=== PATIENT | male | born 1960 ===

== ENCOUNTER 2017-09-23 10:31 | Inpatient (IN) | payer SELFPAY ==
[~2017-09-23] VITALS: Ht 180.3 cm; Wt 73.5 kg
[2017-09-23] MEDS ORDERED: RISP-34 PO (14:30)
[2017-09-23] MEDS ORDERED: MAG HYD/AL HYD/SIMETH 30ML UDC PO PRN (15:00)
[2017-09-23] MEDS ORDERED: ACETAMINOPHEN 325 MG TAB PO PRN (15:00)
[2017-09-23] MEDS ORDERED: risperiDONE 1 MG TAB PO SCH (21:00)
[2017-09-23] MEDS: risperiDONE 1 MG TAB PO SCH (21:42)
[2017-09-24 04:30] VITALS: BP 90/70
[2017-09-24] MEDS: MULTIVITAMINS PO SCH (08:22)
[2017-09-24] MEDS: risperiDONE 1 MG TAB PO SCH ×2 (08:22→22:09)
--- NOTE | 2017-09-24 10:28 | EKG ---
FACILITY: [facility] PATIENT NAME: RAVEN BASS : [id number] MR: [id number] V: [id number] EXAM DATE: ORDERING PHYSICIAN: DIMITRI BAUTISTA TECHNOLOGIST: CHUCK Hou Reason : HX OF CHEST PAIN Blood Pressure : / mmHG Vent. Rate : 081 BPM Atrial Rate : 081 BPM P-R Int : 172 ms QRS Dur : 086 ms QT Int : 346 ms P-R-T Axes : 064 061 064 degrees QTc Int : 401 ms Normal sinus rhythm with sinus arrhythmia Normal ECG No previous ECGs available Confirmed by ALYSHA JOHNSON ([id number]) on 09/24/2017 1:03:14 PM Referred By: DIMITRI BAUTISTA Confirmed By:ALYSHA JOHNSON
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
[2017-09-25 06:01] VITALS: BP 108/80
[2017-09-25] MEDS: risperiDONE 1 MG TAB PO SCH ×2 (08:03→21:06)
[2017-09-25] MEDS: MULTIVITAMINS PO SCH (08:03)
--- NOTE | 2017-09-25 13:20 | BHS Progress Note ---
[facility] - Subjective Progress Notes Subjective Patient pleasant and cooperative this AM with treatment team and this provider. Continues to voice concerns about being followed and persecuted by "Mexicans and Blacks." Patient will continue current medications, no changes, will proceed with following [facility] commitment from [facility] in this patient with multiple psychiatric admissions and history of severe persisting mental illness. Appetite and sleep good. Suicidal Ideation: None Homicidal Ideation: None [facility] - Objective Physical Exam Vital Signs Vital Signs Date Time Temp Pulse Resp B/P (MAP) Pulse Ox O2 Delivery O2 Flow Rate FiO2 09/25/17 06:01 98.2 70 15 108/80 (89) 92 Room Air Muscle Strength and Tone: WNL Gait and Station: Steady [facility] Medications Reviewed: Side Effects, Benefits of Medication, Risks Allergies Reviewed: Yes Mental Status Exam General Appearance: Casual, Well Groomed, Good Eye Contact, Cooperative, Polite , Good Interaction, No Unkept, No Tearful, No Psychomotor Agitation, No Psychomotor Retardation, No Bizarre Mannerisms, No Tics Speech: Clear, Spontaneous, Normal Rate, Normal Rhythm, Normal Volume, Normal Tone Mood: Euthymic Affect: Full and Appropriate, No Tearful, No Anxious, No Agitated Thought Process: No Logical, No Goal Directed, Loose Associations Thought Content: No Suicidal Ideation, No Homicidal Ideation, Delusions ( persecution), Auditory Halllucinations (probable), No Visual Hallucinations, No Thought Broadcasting, No Ideas of Reference, No Obsessions, No Compulsions Sensorium: Clear Cognition: Alert & Oriented-Person, Alert & Oriented-Place, Alert & Oriented- Time, Dztbu-Syfjwiyo-Eytsvsvnl Memory: Immediate, Recent, Remote Intelligence: Average Insight Judgment: Poor (limited by illness) [facility] Assessment and Plan Auic-zz-Xate Encounter Date: Sep 25, 2017 Hgdu-on-Wgqk Encounter Time: 11:30 [facility] Plan: Necessary Precautions, Individual/Group Therapy, Admin/Titrate Meds, Educate Patient Multpiple Antipsychotics Used: No Problems: (1) Schizophrenia Status: Chronic (2) Polysubstance dependence Status: Resolved Assessment & Plan: in remission Condition 1. continue treatment. 2. move forward with placement at [facility]. Problem Qualifiers (1) Schizophrenia: Schizophrenia type: paranoid schizophrenia Qualified Codes: F20.0 - Paranoid schizophrenia FIORDALIZA ALVARENGA MD Sep 25, 2017 13:20
[2017-09-26 02:53] VITALS: BP 120/74
[2017-09-26] MEDS: risperiDONE 1 MG TAB PO SCH ×2 (08:38→20:50)
[2017-09-26] MEDS: MULTIVITAMINS PO SCH (08:38)
--- NOTE | 2017-09-26 13:25 | BHS Progress Note ---
[facility] - Subjective Progress Notes Subjective Patient continues to be cooperative and pleasant on the unit, a little sedated on the unit today, and will change risperdal to 3mg QHS and 1mg QAM. Patient reports underlying positive symptoms are in decline and medication is helpful. Sleep and appetite good, no other concerns today. Will continue to await placement at [facility]. Suicidal Ideation: None Homicidal Ideation: None [facility] - Objective Physical Exam Vital Signs Vital Signs Date Time Temp Pulse Resp B/P (MAP) Pulse Ox O2 Delivery O2 Flow Rate FiO2 09/26/17 02:53 98.6 72 16 120/74 (89) 89 Room Air Muscle Strength and Tone: WNL Gait and Station: Steady [facility] Medications Reviewed: Side Effects, Benefits of Medication, Risks Allergies Reviewed: Yes Mental Status Exam General Appearance: Casual, Well Groomed, Good Eye Contact, Cooperative, Polite , Good Interaction, No Unkept, No Tearful, No Psychomotor Agitation, No Psychomotor Retardation, No Bizarre Mannerisms, No Tics Speech: Clear, Spontaneous, Normal Rate, Normal Rhythm, Normal Volume, Normal Tone Mood: Euthymic Affect: Full and Appropriate, No Tearful, No Anxious, No Agitated Thought Process: No Logical, No Goal Directed, Loose Associations Thought Content: No Suicidal Ideation, No Homicidal Ideation, Delusions ( persecution), Auditory Halllucinations (probable), No Visual Hallucinations, No Thought Broadcasting, No Ideas of Reference, No Obsessions, No Compulsions Sensorium: Clear Cognition: Alert & Oriented-Person, Alert & Oriented-Place, Alert & Oriented- Time, Zagfm-Nwwpakjh-Ehqcwtgmb Memory: Immediate, Recent, Remote Intelligence: Average Insight Judgment: Poor (limited by illness) [facility] Assessment and Plan Lmpx-yy-Qubw Encounter Date: Sep 26, 2017 Jwyd-xs-Vpio Encounter Time: 11:45 [facility] Plan: Necessary Precautions, Individual/Group Therapy, Admin/Titrate Meds, Educate Patient Multpiple Antipsychotics Used: No Problems: (1) Schizophrenia Status: Chronic (2) Polysubstance dependence Status: Resolved Assessment & Plan: in remission Condition 1. continue treatment. 2. risperdal 1mg QAM, and 3mg QHS 3. await transfer to [facility]. Problem Qualifiers (1) Schizophrenia: Schizophrenia type: paranoid schizophrenia Qualified Codes: F20.0 - Paranoid schizophrenia FIORDALIZA ALVARENGA MD Sep 26, 2017 13:25
[2017-09-27 06:57] LABS: PLATELET COUNT, AUTOMATED 153 K/uL (150-450)
[2017-09-27 07:05] LABS: LDL CHOLESTEROL 135 mg/dl
[2017-09-27] MEDS: risperiDONE 1 MG TAB PO SCH ×2 (07:59→21:15)
[2017-09-27] MEDS: MULTIVITAMINS PO SCH (07:59)
[2017-09-27 09:05] VITALS: BP 116/70
--- NOTE | 2017-09-27 12:55 | BHS Progress Note ---
[facility] - Subjective Progress Notes Subjective Patient remains on unit, very cooperative, doing well, denies any concerns today , no obvious evidence of underlying paranoia exists. Will continue current medication, regimen, and await [facility] placement. Suicidal Ideation: None Homicidal Ideation: None [facility] - Objective Physical Exam Vital Signs Vital Signs Date Time Temp Pulse Resp B/P (MAP) Pulse Ox O2 Delivery O2 Flow Rate FiO2 09/26/17 02:53 98.6 72 16 120/74 (89) 89 Room Air Muscle Strength and Tone: WNL Gait and Station: Steady [facility] Medications Reviewed: Side Effects, Benefits of Medication, Risks Allergies Reviewed: Yes Mental Status Exam General Appearance: Casual, Well Groomed, Good Eye Contact, Cooperative, Polite , Good Interaction, No Unkept, No Tearful, No Psychomotor Agitation, No Psychomotor Retardation, No Bizarre Mannerisms, No Tics Speech: Clear, Spontaneous, Normal Rate, Normal Rhythm, Normal Volume, Normal Tone Mood: Euthymic Affect: Full and Appropriate, No Tearful, No Anxious, No Agitated Thought Process: No Logical, No Goal Directed, Loose Associations Thought Content: No Suicidal Ideation, No Homicidal Ideation, Delusions ( persecution), Auditory Halllucinations (probable), No Visual Hallucinations, No Thought Broadcasting, No Ideas of Reference, No Obsessions, No Compulsions Sensorium: Clear Cognition: Alert & Oriented-Person, Alert & Oriented-Place, Alert & Oriented- Time, Zxjme-Nhcmltle-Jejukuuxy Memory: Immediate, Recent, Remote Intelligence: Average Insight Judgment: Poor (limited by illness) Result Diagram: 09/27/17 0639 09/27/17 0639 [facility] Assessment and Plan Jlxg-ic-Stlf Encounter Date: Sep 27, 2017 Ozgz-cf-Qvfa Encounter Time: 12:50 [facility] Plan: Necessary Precautions, Individual/Group Therapy, Admin/Titrate Meds, Educate Patient Tobacco Medications: Started Multpiple Antipsychotics Used: No Problems: (1) Schizophrenia Status: Chronic (2) Polysubstance dependence Status: Resolved Assessment & Plan: in remission Condition 1. continue medications and treatment. [facility] Problem Qualifiers (1) Schizophrenia: Schizophrenia type: paranoid schizophrenia Qualified Codes: F20.0 - Paranoid schizophrenia FIORDALIZA ALVARENGA MD Sep 27, 2017 12:55
[2017-09-28] MEDS: risperiDONE 1 MG TAB PO SCH ×2 (08:26→21:00)
[2017-09-28] MEDS: MULTIVITAMINS PO SCH (08:26)
--- NOTE | 2017-09-28 10:29 | BHS Progress Note ---
[facility] - Subjective Progress Notes Subjective "It's not a matter of if they are going to kill me, it's a matter of when. I don 't see no Mexicans here." Ongoing paranoia, delusional conversation Mood variation Depression minimal, denies suicidal or homicidal ideation Appetite good, energy level fair Suicidal Ideation: None Homicidal Ideation: None [facility] - Objective Physical Exam Muscle Strength and Tone: WNL Gait and Station: Steady [facility] Medications Reviewed: Side Effects, Benefits of Medication, Risks Allergies Reviewed: Yes Mental Status Exam General Appearance: Casual, Well Groomed, Good Eye Contact, Cooperative, Polite , Good Interaction, No Unkept, No Tearful, No Psychomotor Agitation, No Psychomotor Retardation, No Bizarre Mannerisms, No Tics Speech: Clear, Spontaneous, Normal Rate, Normal Rhythm, Normal Volume, Normal Tone Mood: Euthymic Affect: Full and Appropriate, No Tearful, No Anxious, No Agitated Thought Process: No Logical, No Goal Directed, Loose Associations Thought Content: No Suicidal Ideation, No Homicidal Ideation, Delusions ( persecution), Auditory Halllucinations (probable), No Visual Hallucinations, No Thought Broadcasting, No Ideas of Reference, No Obsessions, No Compulsions Sensorium: Clear Cognition: Alert & Oriented-Person, Alert & Oriented-Place, Alert & Oriented- Time, Wkljs-Usxzumju-Uphwrdlna Memory: Immediate, Recent, Remote Intelligence: Average Insight Judgment: Poor (limited by illness) Result Diagram: 09/27/17 0639 09/27/17 0639 Lab Vital Signs Date Time Temp Pulse Resp B/P (MAP) Pulse Ox O2 Delivery O2 Flow Rate FiO2 09/27/17 09:05 99.4 74 15 116/70 (85) 92 Room Air Allergies Coded Allergies No Known Drug Allergies (Unverified09/23/17) [facility] Assessment and Plan Xlzn-zl-Uaqj Encounter Date: Sep 28, 2017 Nblg-kv-Gqte Encounter Time: 10:28 [facility] Plan: Necessary Precautions, Individual/Group Therapy, Admin/Titrate Meds, Educate Patient Tobacco Medications: Started Multpiple Antipsychotics Used: No Problems: (1) Schizophrenia Status: Chronic (2) Polysubstance dependence Status: Resolved Condition Continue current medications and treatment Maintain precautions H transfer pending bed availability Problem Qualifiers (1) Schizophrenia: Schizophrenia type: paranoid schizophrenia Qualified Codes: F20.0 - Paranoid schizophrenia ALBERT GRADY NP Sep 28, 2017 10:29
[2017-09-28 10:40] VITALS: BP 106/60
[2017-09-29 08:00] VITALS: BP 104/70
[2017-09-29] MEDS: MULTIVITAMINS PO SCH (08:21)
[2017-09-29] MEDS: risperiDONE 1 MG TAB PO SCH ×2 (08:21→21:05)
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
[2017-09-30 03:24] VITALS: BP 118/77
[2017-09-30] MEDS: risperiDONE 1 MG TAB PO SCH ×2 (08:21→21:26)
[2017-09-30] MEDS: MULTIVITAMINS PO SCH (08:21)
--- NOTE | 2017-09-30 13:46 | BHS Progress Note ---
[facility] - Subjective Progress Notes Subjective Patient remains pleasant and cooperative on the unit, patient is aware and accepting that he will go to [place] to the [facility]. Denies any problems today. Will continue same medications. Suicidal Ideation: None Homicidal Ideation: None [facility] - Objective Physical Exam Vital Signs Vital Signs Date Time Temp Pulse Resp B/P (MAP) Pulse Ox O2 Delivery O2 Flow Rate FiO2 09/30/17 03:24 98.3 81 16 118/77 (91) 90 Room Air Muscle Strength and Tone: WNL Gait and Station: Steady [facility] Medications Reviewed: Side Effects, Benefits of Medication, Risks Allergies Reviewed: Yes Mental Status Exam General Appearance: Casual, Well Groomed, Good Eye Contact, Cooperative, Polite , Good Interaction, No Unkept, No Tearful, No Psychomotor Agitation, No Psychomotor Retardation, No Bizarre Mannerisms, No Tics Speech: Clear, Spontaneous, Normal Rate, Normal Rhythm, Normal Volume, Normal Tone Mood: Euthymic Affect: Full and Appropriate, Calm, No Tearful, No Anxious, No Agitated Thought Process: No Logical, No Goal Directed, Loose Associations, Flight of Ideas Thought Content: No Suicidal Ideation, No Homicidal Ideation, Delusions ( persecution), Auditory Halllucinations (probable), No Visual Hallucinations, No Thought Broadcasting, No Ideas of Reference, No Obsessions, No Compulsions, Other (paranoia) Sensorium: Clear Cognition: Alert & Oriented-Person, Alert & Oriented-Place, Alert & Oriented- Time, Mirla-Itlbqnhw-Ytapcnksq Memory: Immediate, Recent, Remote Intelligence: Average Insight Judgment: Poor (limited by illness) Result Diagram: 09/27/17 0639 09/27/17 0639 [facility] Assessment and Plan Talx-js-Lxpu Encounter Date: Sep 30, 2017 Thrm-vu-Whun Encounter Time: 11:30 [facility] Plan: Necessary Precautions, Individual/Group Therapy, Admin/Titrate Meds, Educate Patient Tobacco Medications: Started Multpiple Antipsychotics Used: No Problems: (1) Schizophrenia Status: Chronic (2) Polysubstance dependence Status: Resolved Problem Qualifiers (1) Schizophrenia: Schizophrenia type: paranoid schizophrenia Qualified Codes: F20.0 - Paranoid schizophrenia FIORDALIZA ALVARENGA MD Sep 30, 2017 13:46
[2017-10-01 03:59] VITALS: BP 107/70
[2017-10-01] MEDS: risperiDONE 1 MG TAB PO SCH ×2 (08:11→20:49)
[2017-10-01] MEDS: MULTIVITAMINS PO SCH (08:11)
--- NOTE | 2017-10-01 10:27 | BHS Progress Note ---
[facility] - Subjective Progress Notes Subjective Patient continues to interact well on the unit. No concerns today, patient eating well, sleeping well, no evidence of social withdrawal or paranoia on the unit. Patient interacting with other patients well. Will continue current regimen and await state hospital placement. Suicidal Ideation: None Homicidal Ideation: None [facility] - Objective Physical Exam Muscle Strength and Tone: WNL Gait and Station: Steady [facility] Medications Reviewed: Side Effects, Benefits of Medication, Risks Allergies Reviewed: Yes Mental Status Exam General Appearance: Casual, Well Groomed, Good Eye Contact, Cooperative, Polite , Good Interaction, No Unkept, No Tearful, No Psychomotor Agitation, No Psychomotor Retardation, No Bizarre Mannerisms, No Tics Speech: Clear, Spontaneous, Normal Rate, Normal Rhythm, Normal Volume, Normal Tone Mood: Euthymic Affect: Full and Appropriate, Calm, No Tearful, No Anxious, No Agitated Thought Process: No Logical, No Goal Directed, Loose Associations, Flight of Ideas Thought Content: No Suicidal Ideation, No Homicidal Ideation, Delusions ( persecution), Auditory Halllucinations (probable), No Visual Hallucinations, No Thought Broadcasting, No Ideas of Reference, No Obsessions, No Compulsions, Other (paranoia) Sensorium: Clear Cognition: Alert & Oriented-Person, Alert & Oriented-Place, Alert & Oriented- Time, Olyyq-Klldfllj-Qxqkqueao Memory: Immediate, Recent, Remote Intelligence: Average Insight Judgment: Poor (limited by illness) Result Diagram: 09/27/17 0639 09/27/17 0639 [facility] Assessment and Plan Kfgr-ng-Xmmg Encounter Date: Oct 01, 2017 Eyzs-cd-Mkue Encounter Time: 09:00 [facility] Plan: Necessary Precautions, Individual/Group Therapy, Admin/Titrate Meds, Educate Patient Tobacco Medications: Started Multpiple Antipsychotics Used: No Problems: (1) Schizophrenia Status: Chronic (2) Polysubstance dependence Status: Resolved Condition 1. continue treatment. 2. no medication changes. Problem Qualifiers (1) Schizophrenia: Schizophrenia type: paranoid schizophrenia Qualified Codes: F20.0 - Paranoid schizophrenia FIORDALIZA ALVARENGA MD Oct 01, 2017 10:27
[2017-10-01 21:43] VITALS: BP 107/69
[2017-10-02 02:17] VITALS: BP 109/76
[2017-10-02] MEDS: risperiDONE 1 MG TAB PO SCH ×2 (08:27→21:16)
[2017-10-02] MEDS: MULTIVITAMINS PO SCH (08:27)
--- NOTE | 2017-10-02 13:38 | BHS Progress Note ---
BHS - Subjective Progress Notes Subjective Patient continues to interact well on the unit, and is taking an active role in his care. Patient continues to have underlying persecutory type delusions, but they seem to not be very prominent anymore, and patient reports a beneficial effect from risperdal. Will continue same medication for now, and await transfer to [facility]. Suicidal Ideation: None Homicidal Ideation: None BHS - Objective Physical Exam Vital Signs Vital Signs Date Time Temp Pulse Resp B/P (MAP) Pulse Ox O2 Delivery O2 Flow Rate FiO2 10/02/17 02:17 98.3 93 109/76 (87) 90 10/01/17 21:43 Room Air 10/01/17 03:59 16 Hematology Test 09/27/17 06:39 Red Blood Count 4.23 M/uL (4.00-5.60) Mean Corpuscular Volume 93.0 fL (80.0-96.0) Mean Corpuscular Hemoglobin 32.8 pg (26.0-33.0) Mean Corpuscular Hemoglobin Concent 35.3 g/dL (32.0-36.0) Red Cell Distribution Width 14.2 % (11.5-14.5) Mean Platelet Volume 8.7 fL (7.2-11.1) Neutrophils (%) (Auto) 46.3 % (39.4-72.5) Lymphocytes (%) (Auto) 41.5 % (17.6-49.6) Monocytes (%) (Auto) 9.8 % (4.1-12.4) Eosinophils (%) (Auto) 1.6 % (0.4-6.7) Basophils (%) (Auto) 0.8 % (0.3-1.4) Nucleated RBC Relative Count (auto) 0.0 /100WBC Neutrophils # (Auto) 3.3 K/uL (2.0-7.4) Lymphocytes # (Auto) 2.9 K/uL (1.3-3.6) Monocytes # (Auto) 0.7 K/uL (0.3-1.0) Eosinophils # (Auto) 0.1 K/uL (0.0-0.5) Basophils # (Auto) 0.1 K/uL (0.0-0.1) Nucleated RBC Absolute Count (auto) 0.00 K/uL Sodium Level 139 mmol/L (137-145) Potassium Level 4.2 mmol/L (3.5-5.0) Chloride Level 104 mmol/L (98-107) Carbon Dioxide Level 23 mmol/L (22-30) Blood Urea Nitrogen 15 mg/dl (9-21) Creatinine 0.90 mg/dl (0.66-1.25) Glomerular Filtration Rate Calc > 60.0 Random Glucose 94 mg/dl (75-110) Calcium Level 8.9 mg/dl (8.4-10.2) Total Bilirubin 0.3 mg/dl (0.2-1.3) Aspartate Amino Transf (AST/SGOT) 19 U/L (0-35) Alanine Aminotransferase (ALT/SGPT) 36 U/L (0-56) Alkaline Phosphatase 77 U/L (0-126) Total Protein 6.5 gm/dl (6.3-8.2) Albumin 3.4 g/dl (3.5-5.0) Triglycerides Level 241 mg/dl (0-250) Cholesterol Level 233 mg/dl (75-200) LDL Cholesterol 135 mg/dl VLDL Cholesterol 48 mg/dl HDL Cholesterol 50 mg/dl Percent HDL Cholesterol 21.0 % Cholesterol Ratio (LDL/HDL) 2.70 Cholesterol/HDL Ratio 4.7 Chemistry Test 09/27/17 06:39 White Blood Count 7.0 k/uL (4.5-11.0) Red Blood Count 4.23 M/uL (4.00-5.60) Hemoglobin 13.9 g/dL (14.0-18.0) Hematocrit 39.3 % (42.0-52.0) Mean Corpuscular Volume 93.0 fL (80.0-96.0) Mean Corpuscular Hemoglobin 32.8 pg (26.0-33.0) Mean Corpuscular Hemoglobin Concent 35.3 g/dL (32.0-36.0) Red Cell Distribution Width 14.2 % (11.5-14.5) Platelet Count 153 K/uL (150-450) Mean Platelet Volume 8.7 fL (7.2-11.1) Neutrophils (%) (Auto) 46.3 % (39.4-72.5) Lymphocytes (%) (Auto) 41.5 % (17.6-49.6) Monocytes (%) (Auto) 9.8 % (4.1-12.4) Eosinophils (%) (Auto) 1.6 % (0.4-6.7) Basophils (%) (Auto) 0.8 % (0.3-1.4) Nucleated RBC Relative Count (auto) 0.0 /100WBC Neutrophils # (Auto) 3.3 K/uL (2.0-7.4) Lymphocytes # (Auto) 2.9 K/uL (1.3-3.6) Monocytes # (Auto) 0.7 K/uL (0.3-1.0) Eosinophils # (Auto) 0.1 K/uL (0.0-0.5) Basophils # (Auto) 0.1 K/uL (0.0-0.1) Nucleated RBC Absolute Count (auto) 0.00 K/uL Glomerular Filtration Rate Calc > 60.0 Calcium Level 8.9 mg/dl (8.4-10.2) Total Bilirubin 0.3 mg/dl (0.2-1.3) Aspartate Amino Transf (AST/SGOT) 19 U/L (0-35) Alanine Aminotransferase (ALT/SGPT) 36 U/L (0-56) Alkaline Phosphatase 77 U/L (0-126) Total Protein 6.5 gm/dl (6.3-8.2) Albumin 3.4 g/dl (3.5-5.0) Triglycerides Level 241 mg/dl (0-250) Cholesterol Level 233 mg/dl (75-200) LDL Cholesterol 135 mg/dl VLDL Cholesterol 48 mg/dl HDL Cholesterol 50 mg/dl Percent HDL Cholesterol 21.0 % Cholesterol Ratio (LDL/HDL) 2.70 Cholesterol/HDL Ratio 4.7 Muscle Strength and Tone: WNL Gait and Station: Steady [facility] Medications Reviewed: Side Effects, Benefits of Medication, Risks Allergies Reviewed: Yes Mental Status Exam General Appearance: Casual, Well Groomed, Good Eye Contact, Cooperative, Polite , Good Interaction, No Unkept, No Tearful, No Psychomotor Agitation, No Psychomotor Retardation, No Bizarre Mannerisms, No Tics Speech: Clear, Spontaneous, Normal Rate, Normal Rhythm, Normal Volume, Normal Tone Mood: Euthymic Affect: Full and Appropriate, Calm, No Tearful, No Anxious, No Agitated Thought Process: No Logical, No Goal Directed, Loose Associations, Flight of Ideas Thought Content: No Suicidal Ideation, No Homicidal Ideation, Delusions ( persecution), Auditory Halllucinations (probable), No Visual Hallucinations, No Thought Broadcasting, No Ideas of Reference, No Obsessions, No Compulsions, Other (paranoia) Sensorium: Clear Cognition: Alert & Oriented-Person, Alert & Oriented-Place, Alert & Oriented- Time, Umlnr-Afkyoiaw-Ohguikuoj Memory: Immediate, Recent, Remote Intelligence: Average Insight Judgment: Poor (limited by illness) [facility] Assessment and Plan Umol-[id number] Encounter Date: Oct 02, 2017 Rwur-om-Ynxp Encounter Time: 13:00 [facility] Plan: Necessary Precautions, Individual/Group Therapy, Admin/Titrate Meds, Educate Patient Tobacco Medications: Started Multpiple Antipsychotics Used: No Problems: (1) Schizophrenia Status: Chronic (2) Polysubstance dependence Status: Resolved Condition 1. continue treatment 2. no medication changes. 3. await [facility]. Problem Qualifiers (1) Schizophrenia: Schizophrenia type: paranoid schizophrenia Qualified Codes: F20.0 - Paranoid schizophrenia FIORDALIZA ALVARENGA MD Oct 02, 2017 13:38
[2017-10-02] MEDS ORDERED: ACETAMINOPHEN 325 MG TAB PO PRN (13:55)
[2017-10-02] MEDS: NAPROXEN 500 MG TAB PO PRN (21:16)
[2017-10-03 04:37] VITALS: BP 108/76
[2017-10-03 08:40] VITALS: BP 112/68
[2017-10-03] MEDS: MULTIVITAMINS PO SCH (08:55)
[2017-10-03] MEDS: NAPROXEN 500 MG TAB PO PRN ×2 (08:56→21:53)
[2017-10-03] MEDS: risperiDONE 1 MG TAB PO SCH ×2 (09:00→21:48)
--- NOTE | 2017-10-03 10:14 | BHS Progress Note ---
BHS - Subjective Progress Notes Subjective Patient remains cooperative on the unit, underlying delusional thinking involving persecution is minimal. Will continue current medications and await state hospital transfer. No other concerns. patient was seeking pain medications yesterday, with no evidence of actual need. Suicidal Ideation: None Homicidal Ideation: None BHS - Objective Physical Exam Vital Signs Hematology Test 09/27/17 06:39 Red Blood Count 4.23 M/uL (4.00-5.60) Mean Corpuscular Volume 93.0 fL (80.0-96.0) Mean Corpuscular Hemoglobin 32.8 pg (26.0-33.0) Mean Corpuscular Hemoglobin Concent 35.3 g/dL (32.0-36.0) Red Cell Distribution Width 14.2 % (11.5-14.5) Mean Platelet Volume 8.7 fL (7.2-11.1) Neutrophils (%) (Auto) 46.3 % (39.4-72.5) Lymphocytes (%) (Auto) 41.5 % (17.6-49.6) Monocytes (%) (Auto) 9.8 % (4.1-12.4) Eosinophils (%) (Auto) 1.6 % (0.4-6.7) Basophils (%) (Auto) 0.8 % (0.3-1.4) Nucleated RBC Relative Count (auto) 0.0 /100WBC Neutrophils # (Auto) 3.3 K/uL (2.0-7.4) Lymphocytes # (Auto) 2.9 K/uL (1.3-3.6) Monocytes # (Auto) 0.7 K/uL (0.3-1.0) Eosinophils # (Auto) 0.1 K/uL (0.0-0.5) Basophils # (Auto) 0.1 K/uL (0.0-0.1) Nucleated RBC Absolute Count (auto) 0.00 K/uL Sodium Level 139 mmol/L (137-145) Potassium Level 4.2 mmol/L (3.5-5.0) Chloride Level 104 mmol/L (98-107) Carbon Dioxide Level 23 mmol/L (22-30) Blood Urea Nitrogen 15 mg/dl (9-21) Creatinine 0.90 mg/dl (0.66-1.25) Glomerular Filtration Rate Calc > 60.0 Random Glucose 94 mg/dl (75-110) Calcium Level 8.9 mg/dl (8.4-10.2) Total Bilirubin 0.3 mg/dl (0.2-1.3) Aspartate Amino Transf (AST/SGOT) 19 U/L (0-35) Alanine Aminotransferase (ALT/SGPT) 36 U/L (0-56) Alkaline Phosphatase 77 U/L (0-126) Total Protein 6.5 gm/dl (6.3-8.2) Albumin 3.4 g/dl (3.5-5.0) Triglycerides Level 241 mg/dl (0-250) Cholesterol Level 233 mg/dl (75-200) LDL Cholesterol 135 mg/dl VLDL Cholesterol 48 mg/dl HDL Cholesterol 50 mg/dl Percent HDL Cholesterol 21.0 % Cholesterol Ratio (LDL/HDL) 2.70 Cholesterol/HDL Ratio 4.7 Chemistry Test 09/27/17 06:39 White Blood Count 7.0 k/uL (4.5-11.0) Red Blood Count 4.23 M/uL (4.00-5.60) Hemoglobin 13.9 g/dL (14.0-18.0) Hematocrit 39.3 % (42.0-52.0) Mean Corpuscular Volume 93.0 fL (80.0-96.0) Mean Corpuscular Hemoglobin 32.8 pg (26.0-33.0) Mean Corpuscular Hemoglobin Concent 35.3 g/dL (32.0-36.0) Red Cell Distribution Width 14.2 % (11.5-14.5) Platelet Count 153 K/uL (150-450) Mean Platelet Volume 8.7 fL (7.2-11.1) Neutrophils (%) (Auto) 46.3 % (39.4-72.5) Lymphocytes (%) (Auto) 41.5 % (17.6-49.6) Monocytes (%) (Auto) 9.8 % (4.1-12.4) Eosinophils (%) (Auto) 1.6 % (0.4-6.7) Basophils (%) (Auto) 0.8 % (0.3-1.4) Nucleated RBC Relative Count (auto) 0.0 /100WBC Neutrophils # (Auto) 3.3 K/uL (2.0-7.4) Lymphocytes # (Auto) 2.9 K/uL (1.3-3.6) Monocytes # (Auto) 0.7 K/uL (0.3-1.0) Eosinophils # (Auto) 0.1 K/uL (0.0-0.5) Basophils # (Auto) 0.1 K/uL (0.0-0.1) Nucleated RBC Absolute Count (auto) 0.00 K/uL Glomerular Filtration Rate Calc > 60.0 Calcium Level 8.9 mg/dl (8.4-10.2) Total Bilirubin 0.3 mg/dl (0.2-1.3) Aspartate Amino Transf (AST/SGOT) 19 U/L (0-35) Alanine Aminotransferase (ALT/SGPT) 36 U/L (0-56) Alkaline Phosphatase 77 U/L (0-126) Total Protein 6.5 gm/dl (6.3-8.2) Albumin 3.4 g/dl (3.5-5.0) Triglycerides Level 241 mg/dl (0-250) Cholesterol Level 233 mg/dl (75-200) LDL Cholesterol 135 mg/dl VLDL Cholesterol 48 mg/dl HDL Cholesterol 50 mg/dl Percent HDL Cholesterol 21.0 % Cholesterol Ratio (LDL/HDL) 2.70 Cholesterol/HDL Ratio 4.7 Muscle Strength and Tone: WNL Gait and Station: Steady [facility] Medications Reviewed: Side Effects, Benefits of Medication, Risks Allergies Reviewed: Yes Mental Status Exam General Appearance: Casual, Well Groomed, Good Eye Contact, Cooperative, Polite , Good Interaction, No Unkept, No Tearful, No Psychomotor Agitation, No Psychomotor Retardation, No Bizarre Mannerisms, No Tics Speech: Clear, Spontaneous, Normal Rate, Normal Rhythm, Normal Volume, Normal Tone Mood: Euthymic Affect: Full and Appropriate, Calm, No Tearful, No Anxious, No Agitated Thought Process: No Logical, No Goal Directed, Loose Associations, Flight of Ideas Thought Content: No Suicidal Ideation, No Homicidal Ideation, Delusions ( persecution), Auditory Halllucinations (probable), No Visual Hallucinations, No Thought Broadcasting, No Ideas of Reference, No Obsessions, No Compulsions, Other (paranoia) Sensorium: Clear Cognition: Alert & Oriented-Person, Alert & Oriented-Place, Alert & Oriented- Time, Ednto-Ugnsrwvo-Rpbxebcjn Memory: Immediate, Recent, Remote Intelligence: Average Insight Judgment: Poor (limited by illness) [facility] Assessment and Plan Znib-xs-Hzpy Encounter Date: Oct 03, 2017 Jstm-kf-Esuc Encounter Time: 09:30 [facility] Plan: Necessary Precautions, Individual/Group Therapy, Admin/Titrate Meds, Educate Patient Tobacco Medications: Started Multpiple Antipsychotics Used: No Problems: (1) Schizophrenia Status: Chronic (2) Polysubstance dependence Status: Resolved Condition 1. continue treatment. 2. await [facility] hospital transfer. Problem Qualifiers (1) Schizophrenia: Schizophrenia type: paranoid schizophrenia Qualified Codes: F20.0 - Paranoid schizophrenia FIORDALIZA ALVARENGA MD Oct 03, 2017 10:14
[2017-10-04] MEDS: MULTIVITAMINS PO SCH (08:11)
[2017-10-04] MEDS: risperiDONE 1 MG TAB PO SCH ×2 (08:11→21:55)
[2017-10-04 11:00] VITALS: BP 102/60
--- NOTE | 2017-10-04 13:00 | BHS Progress Note ---
BHS - Subjective Progress Notes Subjective Patient continues to be cooperative with overall pleasant demeanor on the unit, denies any psychiatric symptoms today, and notably able to demonstrate executive functioning by following up on telephone to receive a refund from an account outside of the hospital. Will continue current medications. Await state hospital transfer. Suicidal Ideation: None Homicidal Ideation: None BHS - Objective Physical Exam Vital Signs Hematology Test 09/27/17 06:39 Red Blood Count 4.23 M/uL (4.00-5.60) Mean Corpuscular Volume 93.0 fL (80.0-96.0) Mean Corpuscular Hemoglobin 32.8 pg (26.0-33.0) Mean Corpuscular Hemoglobin Concent 35.3 g/dL (32.0-36.0) Red Cell Distribution Width 14.2 % (11.5-14.5) Mean Platelet Volume 8.7 fL (7.2-11.1) Neutrophils (%) (Auto) 46.3 % (39.4-72.5) Lymphocytes (%) (Auto) 41.5 % (17.6-49.6) Monocytes (%) (Auto) 9.8 % (4.1-12.4) Eosinophils (%) (Auto) 1.6 % (0.4-6.7) Basophils (%) (Auto) 0.8 % (0.3-1.4) Nucleated RBC Relative Count (auto) 0.0 /100WBC Neutrophils # (Auto) 3.3 K/uL (2.0-7.4) Lymphocytes # (Auto) 2.9 K/uL (1.3-3.6) Monocytes # (Auto) 0.7 K/uL (0.3-1.0) Eosinophils # (Auto) 0.1 K/uL (0.0-0.5) Basophils # (Auto) 0.1 K/uL (0.0-0.1) Nucleated RBC Absolute Count (auto) 0.00 K/uL Sodium Level 139 mmol/L (137-145) Potassium Level 4.2 mmol/L (3.5-5.0) Chloride Level 104 mmol/L (98-107) Carbon Dioxide Level 23 mmol/L (22-30) Blood Urea Nitrogen 15 mg/dl (9-21) Creatinine 0.90 mg/dl (0.66-1.25) Glomerular Filtration Rate Calc > 60.0 Random Glucose 94 mg/dl (75-110) Calcium Level 8.9 mg/dl (8.4-10.2) Total Bilirubin 0.3 mg/dl (0.2-1.3) Aspartate Amino Transf (AST/SGOT) 19 U/L (0-35) Alanine Aminotransferase (ALT/SGPT) 36 U/L (0-56) Alkaline Phosphatase 77 U/L (0-126) Total Protein 6.5 gm/dl (6.3-8.2) Albumin 3.4 g/dl (3.5-5.0) Triglycerides Level 241 mg/dl (0-250) Cholesterol Level 233 mg/dl (75-200) LDL Cholesterol 135 mg/dl VLDL Cholesterol 48 mg/dl HDL Cholesterol 50 mg/dl Percent HDL Cholesterol 21.0 % Cholesterol Ratio (LDL/HDL) 2.70 Cholesterol/HDL Ratio 4.7 Chemistry Test 09/27/17 06:39 White Blood Count 7.0 k/uL (4.5-11.0) Red Blood Count 4.23 M/uL (4.00-5.60) Hemoglobin 13.9 g/dL (14.0-18.0) Hematocrit 39.3 % (42.0-52.0) Mean Corpuscular Volume 93.0 fL (80.0-96.0) Mean Corpuscular Hemoglobin 32.8 pg (26.0-33.0) Mean Corpuscular Hemoglobin Concent 35.3 g/dL (32.0-36.0) Red Cell Distribution Width 14.2 % (11.5-14.5) Platelet Count 153 K/uL (150-450) Mean Platelet Volume 8.7 fL (7.2-11.1) Neutrophils (%) (Auto) 46.3 % (39.4-72.5) Lymphocytes (%) (Auto) 41.5 % (17.6-49.6) Monocytes (%) (Auto) 9.8 % (4.1-12.4) Eosinophils (%) (Auto) 1.6 % (0.4-6.7) Basophils (%) (Auto) 0.8 % (0.3-1.4) Nucleated RBC Relative Count (auto) 0.0 /100WBC Neutrophils # (Auto) 3.3 K/uL (2.0-7.4) Lymphocytes # (Auto) 2.9 K/uL (1.3-3.6) Monocytes # (Auto) 0.7 K/uL (0.3-1.0) Eosinophils # (Auto) 0.1 K/uL (0.0-0.5) Basophils # (Auto) 0.1 K/uL (0.0-0.1) Nucleated RBC Absolute Count (auto) 0.00 K/uL Glomerular Filtration Rate Calc > 60.0 Calcium Level 8.9 mg/dl (8.4-10.2) Total Bilirubin 0.3 mg/dl (0.2-1.3) Aspartate Amino Transf (AST/SGOT) 19 U/L (0-35) Alanine Aminotransferase (ALT/SGPT) 36 U/L (0-56) Alkaline Phosphatase 77 U/L (0-126) Total Protein 6.5 gm/dl (6.3-8.2) Albumin 3.4 g/dl (3.5-5.0) Triglycerides Level 241 mg/dl (0-250) Cholesterol Level 233 mg/dl (75-200) LDL Cholesterol 135 mg/dl VLDL Cholesterol 48 mg/dl HDL Cholesterol 50 mg/dl Percent HDL Cholesterol 21.0 % Cholesterol Ratio (LDL/HDL) 2.70 Cholesterol/HDL Ratio 4.7 Muscle Strength and Tone: WNL Gait and Station: Steady [facility] Medications Reviewed: Side Effects, Benefits of Medication, Risks Allergies Reviewed: Yes Mental Status Exam General Appearance: Casual, Well Groomed, Good Eye Contact, Cooperative, Polite , Good Interaction, No Unkept, No Tearful, No Psychomotor Agitation, No Psychomotor Retardation, No Bizarre Mannerisms, No Tics Speech: Clear, Spontaneous, Normal Rate, Normal Rhythm, Normal Volume, Normal Tone Mood: Euthymic Affect: Full and Appropriate, Calm, No Tearful, No Anxious, No Agitated Thought Process: No Logical, No Goal Directed, Loose Associations, Flight of Ideas Thought Content: No Suicidal Ideation, No Homicidal Ideation, Delusions ( persecution), Auditory Halllucinations (probable), No Visual Hallucinations, No Thought Broadcasting, No Ideas of Reference, No Obsessions, No Compulsions, Other (paranoia) Sensorium: Clear Cognition: Alert & Oriented-Person, Alert & Oriented-Place, Alert & Oriented- Time, Xegpo-Uqcibxif-Nhptkqium Memory: Immediate, Recent, Remote Intelligence: Average Insight Judgment: Poor (limited by illness) [facility] Assessment and Plan Ouvr-qz-[id number] Encounter Date: Oct 04, 2017 Oykd-zc-Zczy Encounter Time: 13:00 [facility] Plan: Necessary Precautions, Individual/Group Therapy, Admin/Titrate Meds, Educate Patient Tobacco Medications: Started Multpiple Antipsychotics Used: No Problems: (1) Schizophrenia Status: Chronic (2) Polysubstance dependence Status: Resolved Condition 1. continue treatment. 2. no medication changes. 3. await [facility] Current Medications Medications (Trade) Dose Ordered Sig/Bert Route PRN Reason Start Time Stop Time Status Last Admin Dose Admin Acetaminophen (Tylenol(*)325 Mg Tab (Or Equiv)) 650 mg Q4H PRN PO HEADACHE 09/23/17 15:00 10/02/17 13:52 DC 09/23/17 21:53 Al Hydrox/Mg Hydrox/Simethicone (Maalox(*) 30 ml Udcup (Or Equiv)) 30 ml Q4H PRN PO DYSPEPSIA 09/23/17 15:00 10/23/17 14:59 Multivitamins (Thera-M Enhanced Tab (Or Equiv)) 1 each QDAY PO 09/24/17 09:00 10/24/17 08:59 10/04/17 08:11 Risperidone (RisperDAL 1 MG TAB (OR EQUIV)) 1 mg BID PO 09/23/17 21:00 09/23/17 21:00 DC Risperidone (RisperDAL 1 MG TAB (OR EQUIV)) 2 mg BID PO 09/23/17 21:00 09/26/17 12:14 DC 09/26/17 08:38 Risperidone (RisperDAL 1 MG TAB (OR EQUIV)) 3 mg QHS PO 09/26/17 21:00 10/26/17 20:59 10/03/17 21:48 Risperidone (RisperDAL 1 MG TAB (OR EQUIV)) 1 mg QAM PO 09/27/17 09:00 10/27/17 08:59 10/04/17 08:11 Acetaminophen (Tylenol(*)325 Mg Tab (Or Equiv)) 650 mg Q8H PRN PO PAIN 10/02/17 13:55 10/23/17 14:59 Naproxen (Naprosyn(*) 500 Mg Tab (Or Equiv)) 250 mg Q8H PRN PO PAIN 10/02/17 13:50 11/01/17 13:49 10/03/17 21:53 Problem Qualifiers (1) Schizophrenia: Schizophrenia type: paranoid schizophrenia Qualified Codes: F20.0 - Paranoid schizophrenia FIORDALIZA ALVARENGA MD Oct 04, 2017 13:00
[2017-10-04] MEDS: NAPROXEN 500 MG TAB PO PRN (19:05)
[2017-10-05] MEDS: risperiDONE 1 MG TAB PO SCH ×2 (08:14→21:20)
[2017-10-05] MEDS: MULTIVITAMINS PO SCH (08:14)
[2017-10-05] MEDS: NAPROXEN 500 MG TAB PO PRN ×2 (08:17→21:21)
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
[2017-10-05 13:55] VITALS: BP 108/62
[2017-10-06] MEDS: risperiDONE 1 MG TAB PO SCH ×2 (08:26→21:23)
[2017-10-06] MEDS: MULTIVITAMINS PO SCH (08:26)
--- NOTE | 2017-10-06 09:08 | BHS Progress Note ---
[facility] - Subjective Progress Notes Subjective "I'm still pretty bummed about the whole thing." Sleep sufficient, denies depression, anxiety, anger Denies paranoia, talks about dislike of ethnic groups Behavior appropriate on unit Awaiting [facility] transfer Suicidal Ideation: None Homicidal Ideation: None [facility] - Objective Physical Exam Vital Signs Vital Signs Date Time Temp Pulse Resp B/P (MAP) Pulse Ox O2 Delivery O2 Flow Rate FiO2 10/05/17 13:55 99.0 85 18 108/62 (77) 92 Room Air Allergies Coded Allergies No Known Drug Allergies (Unverified09/23/17) Muscle Strength and Tone: WNL Gait and Station: Steady [facility] Medications Reviewed: Side Effects, Benefits of Medication, Risks Allergies Reviewed: Yes Mental Status Exam General Appearance: Casual, Well Groomed, Good Eye Contact, Cooperative, Polite , Good Interaction, No Unkept, No Tearful, No Psychomotor Agitation, No Psychomotor Retardation, No Bizarre Mannerisms, No Tics Speech: Clear, Spontaneous, Normal Rate, Normal Rhythm, Normal Volume, Normal Tone Mood: Euthymic Affect: Full and Appropriate, Calm, No Tearful, No Anxious, No Agitated Thought Process: No Logical, No Goal Directed, Loose Associations, Flight of Ideas Thought Content: No Suicidal Ideation, No Homicidal Ideation, Delusions ( persecution), Auditory Halllucinations (probable), No Visual Hallucinations, No Thought Broadcasting, No Ideas of Reference, No Obsessions, No Compulsions, Other (paranoia) Sensorium: Clear Cognition: Alert & Oriented-Person, Alert & Oriented-Place, Alert & Oriented- Time, Doghd-Srhwswqq-Tluaxwpnh Memory: Immediate, Recent, Remote Intelligence: Average Insight Judgment: Poor (limited by illness) Lab Current Medications Medications (Trade) Dose Ordered Sig/Bert Route PRN Reason Start Time Stop Time Status Last Admin Dose Admin Acetaminophen (Tylenol(*)325 Mg Tab (Or Equiv)) 650 mg Q4H PRN PO HEADACHE 09/23/17 15:00 10/02/17 13:52 DC 09/23/17 21:53 Al Hydrox/Mg Hydrox/Simethicone (Maalox(*) 30 ml Udcup (Or Equiv)) 30 ml Q4H PRN PO DYSPEPSIA 09/23/17 15:00 10/23/17 14:59 Multivitamins (Thera-M Enhanced Tab (Or Equiv)) 1 each QDAY PO 09/24/17 09:00 10/24/17 08:59 10/06/17 08:26 Risperidone (RisperDAL 1 MG TAB (OR EQUIV)) 1 mg BID PO 09/23/17 21:00 09/23/17 21:00 DC Risperidone (RisperDAL 1 MG TAB (OR EQUIV)) 2 mg BID PO 09/23/17 21:00 09/26/17 12:14 DC 09/26/17 08:38 Risperidone (RisperDAL 1 MG TAB (OR EQUIV)) 3 mg QHS PO 09/26/17 21:00 10/26/17 20:59 10/05/17 21:20 Risperidone (RisperDAL 1 MG TAB (OR EQUIV)) 1 mg QAM PO 09/27/17 09:00 10/27/17 08:59 10/06/17 08:26 Acetaminophen (Tylenol(*)325 Mg Tab (Or Equiv)) 650 mg Q8H PRN PO PAIN 10/02/17 13:55 10/23/17 14:59 Naproxen (Naprosyn(*) 500 Mg Tab (Or Equiv)) 250 mg Q8H PRN PO PAIN 10/02/17 13:50 11/01/17 13:49 10/05/17 21:21 Vital Signs Date Time Temp Pulse Resp B/P (MAP) Pulse Ox O2 Delivery O2 Flow Rate FiO2 10/05/17 13:55 99.0 85 18 108/62 (77) 92 Room Air Allergies Coded Allergies No Known Drug Allergies (Unverified09/23/17) [facility] Assessment and Plan [id number] Encounter Date: Oct 06, 2017 Kzpt-un-Wdiu Encounter Time: 09:05 [facility] Plan: Necessary Precautions, Individual/Group Therapy, Admin/Titrate Meds, Educate Patient Tobacco Medications: Started Multpiple Antipsychotics Used: No Problems: (1) Schizophrenia Status: Chronic (2) Polysubstance dependence Status: Resolved Condition Continue current medication and treatment Awaiting [facility] transfer Continue precautions Problem Qualifiers (1) Schizophrenia: Schizophrenia type: paranoid schizophrenia Qualified Codes: F20.0 - Paranoid schizophrenia ALBERT GRADY NP Oct 06, 2017 09:08
[2017-10-06 14:25] VITALS: BP 108/68
[2017-10-06] MEDS: NAPROXEN 500 MG TAB PO PRN (21:23)
[2017-10-07 06:17] VITALS: BP 95/74
[2017-10-07] MEDS: risperiDONE 1 MG TAB PO SCH ×2 (07:27→21:33)
[2017-10-07] MEDS: MULTIVITAMINS PO SCH (07:27)
--- NOTE | 2017-10-07 11:58 | BHS Progress Note ---
[facility] - Subjective Progress Notes Subjective Patient continues to do well on the unit, no obvious signs of psychosis, patient is interacting well with staff and other patients, and attempting to help with the care of others. No obvious paranoia on the unit, eating and sleeping well, no other concerns. will continue same medications. Patient is currently number [facility] on [facility] wait list. Suicidal Ideation: None Homicidal Ideation: None S - Objective Physical Exam Vital Signs Vital Signs Date Time Temp Pulse Resp B/P (MAP) Pulse Ox O2 Delivery O2 Flow Rate FiO2 10/07/17 06:17 98.2 102 16 95/74 (81) 93 Room Air Hematology Test 09/27/17 06:39 Red Blood Count 4.23 M/uL (4.00-5.60) Mean Corpuscular Volume 93.0 fL (80.0-96.0) Mean Corpuscular Hemoglobin 32.8 pg (26.0-33.0) Mean Corpuscular Hemoglobin Concent 35.3 g/dL (32.0-36.0) Red Cell Distribution Width 14.2 % (11.5-14.5) Mean Platelet Volume 8.7 fL (7.2-11.1) Neutrophils (%) (Auto) 46.3 % (39.4-72.5) Lymphocytes (%) (Auto) 41.5 % (17.6-49.6) Monocytes (%) (Auto) 9.8 % (4.1-12.4) Eosinophils (%) (Auto) 1.6 % (0.4-6.7) Basophils (%) (Auto) 0.8 % (0.3-1.4) Nucleated RBC Relative Count (auto) 0.0 /100WBC Neutrophils # (Auto) 3.3 K/uL (2.0-7.4) Lymphocytes # (Auto) 2.9 K/uL (1.3-3.6) Monocytes # (Auto) 0.7 K/uL (0.3-1.0) Eosinophils # (Auto) 0.1 K/uL (0.0-0.5) Basophils # (Auto) 0.1 K/uL (0.0-0.1) Nucleated RBC Absolute Count (auto) 0.00 K/uL Sodium Level 139 mmol/L (137-145) Potassium Level 4.2 mmol/L (3.5-5.0) Chloride Level 104 mmol/L (98-107) Carbon Dioxide Level 23 mmol/L (22-30) Blood Urea Nitrogen 15 mg/dl (9-21) Creatinine 0.90 mg/dl (0.66-1.25) Glomerular Filtration Rate Calc > 60.0 Random Glucose 94 mg/dl (75-110) Calcium Level 8.9 mg/dl (8.4-10.2) Total Bilirubin 0.3 mg/dl (0.2-1.3) Aspartate Amino Transf (AST/SGOT) 19 U/L (0-35) Alanine Aminotransferase (ALT/SGPT) 36 U/L (0-56) Alkaline Phosphatase 77 U/L (0-126) Total Protein 6.5 gm/dl (6.3-8.2) Albumin 3.4 g/dl (3.5-5.0) Triglycerides Level 241 mg/dl (0-250) Cholesterol Level 233 mg/dl (75-200) LDL Cholesterol 135 mg/dl VLDL Cholesterol 48 mg/dl HDL Cholesterol 50 mg/dl Percent HDL Cholesterol 21.0 % Cholesterol Ratio (LDL/HDL) 2.70 Cholesterol/HDL Ratio 4.7 Chemistry Test 09/27/17 06:39 White Blood Count 7.0 k/uL (4.5-11.0) Red Blood Count 4.23 M/uL (4.00-5.60) Hemoglobin 13.9 g/dL (14.0-18.0) Hematocrit 39.3 % (42.0-52.0) Mean Corpuscular Volume 93.0 fL (80.0-96.0) Mean Corpuscular Hemoglobin 32.8 pg (26.0-33.0) Mean Corpuscular Hemoglobin Concent 35.3 g/dL (32.0-36.0) Red Cell Distribution Width 14.2 % (11.5-14.5) Platelet Count 153 K/uL (150-450) Mean Platelet Volume 8.7 fL (7.2-11.1) Neutrophils (%) (Auto) 46.3 % (39.4-72.5) Lymphocytes (%) (Auto) 41.5 % (17.6-49.6) Monocytes (%) (Auto) 9.8 % (4.1-12.4) Eosinophils (%) (Auto) 1.6 % (0.4-6.7) Basophils (%) (Auto) 0.8 % (0.3-1.4) Nucleated RBC Relative Count (auto) 0.0 /100WBC Neutrophils # (Auto) 3.3 K/uL (2.0-7.4) Lymphocytes # (Auto) 2.9 K/uL (1.3-3.6) Monocytes # (Auto) 0.7 K/uL (0.3-1.0) Eosinophils # (Auto) 0.1 K/uL (0.0-0.5) Basophils # (Auto) 0.1 K/uL (0.0-0.1) Nucleated RBC Absolute Count (auto) 0.00 K/uL Glomerular Filtration Rate Calc > 60.0 Calcium Level 8.9 mg/dl (8.4-10.2) Total Bilirubin 0.3 mg/dl (0.2-1.3) Aspartate Amino Transf (AST/SGOT) 19 U/L (0-35) Alanine Aminotransferase (ALT/SGPT) 36 U/L (0-56) Alkaline Phosphatase 77 U/L (0-126) Total Protein 6.5 gm/dl (6.3-8.2) Albumin 3.4 g/dl (3.5-5.0) Triglycerides Level 241 mg/dl (0-250) Cholesterol Level 233 mg/dl (75-200) LDL Cholesterol 135 mg/dl VLDL Cholesterol 48 mg/dl HDL Cholesterol 50 mg/dl Percent HDL Cholesterol 21.0 % Cholesterol Ratio (LDL/HDL) 2.70 Cholesterol/HDL Ratio 4.7 Muscle Strength and Tone: WNL Gait and Station: Steady [facility] Medications Reviewed: Side Effects, Benefits of Medication, Risks Allergies Reviewed: Yes Mental Status Exam General Appearance: Casual, Well Groomed, Good Eye Contact, Cooperative, Polite , Good Interaction, No Unkept, No Tearful, No Psychomotor Agitation, No Psychomotor Retardation, No Bizarre Mannerisms, No Tics Speech: Clear, Spontaneous, Normal Rate, Normal Rhythm, Normal Volume, Normal Tone Mood: Euthymic Affect: Full and Appropriate, Calm, No Tearful, No Anxious, No Agitated Thought Process: No Logical, No Goal Directed, Loose Associations, Flight of Ideas Thought Content: No Suicidal Ideation, No Homicidal Ideation, Delusions ( persecution), Auditory Halllucinations (probable), No Visual Hallucinations, No Thought Broadcasting, No Ideas of Reference, No Obsessions, No Compulsions, Other (paranoia) Sensorium: Clear Cognition: Alert & Oriented-Person, Alert & Oriented-Place, Alert & Oriented- Time, Vquek-Ejwknghc-Doivblpmh Memory: Immediate, Recent, Remote Intelligence: Average Insight Judgment: Poor (limited by illness) [facility] Assessment and Plan [id number] Encounter Date: Oct 07, 2017 Qeyx-hd-Pnpr Encounter Time: 11:30 [facility] Plan: Necessary Precautions, Individual/Group Therapy, Admin/Titrate Meds, Educate Patient Tobacco Medications: Started Multpiple Antipsychotics Used: No Problems: (1) Schizophrenia Status: Chronic (2) Polysubstance dependence Status: Resolved Condition 1. continue treatment. 2. no medication changes. [facility] Problem Qualifiers (1) Schizophrenia: Schizophrenia type: paranoid schizophrenia Qualified Codes: F20.0 - Paranoid schizophrenia FIORDALIZA ALVARENGA MD Oct 07, 2017 11:57
[2017-10-07] MEDS: NAPROXEN 500 MG TAB PO PRN (21:33)
[2017-10-08 06:15] VITALS: BP 131/80
[2017-10-08] MEDS: MULTIVITAMINS PO SCH (08:05)
[2017-10-08] MEDS: risperiDONE 1 MG TAB PO SCH ×2 (08:06→21:00)
[2017-10-08] MEDS: NAPROXEN 500 MG TAB PO PRN ×2 (08:08→21:10)
--- NOTE | 2017-10-08 12:09 | BHS Progress Note ---
[facility] - Subjective Progress Notes Subjective Patient continues to be pleasant , and overall cooperative on the unit, Nurses report some potentially problematic sleep, although patient currently denies any complaints including denial of any psychosis. Patient notably interacting well with other patients and not displaying any underlying paranoia on the unit. Suicidal Ideation: None Homicidal Ideation: None [facility] - Objective Physical Exam Vital Signs Vital Signs Date Time Temp Pulse Resp B/P (MAP) Pulse Ox O2 Delivery O2 Flow Rate FiO2 10/08/17 06:15 99.6 81 15 131/80 (97) 93 Room Air Hematology Test 09/27/17 06:39 Red Blood Count 4.23 M/uL (4.00-5.60) Mean Corpuscular Volume 93.0 fL (80.0-96.0) Mean Corpuscular Hemoglobin 32.8 pg (26.0-33.0) Mean Corpuscular Hemoglobin Concent 35.3 g/dL (32.0-36.0) Red Cell Distribution Width 14.2 % (11.5-14.5) Mean Platelet Volume 8.7 fL (7.2-11.1) Neutrophils (%) (Auto) 46.3 % (39.4-72.5) Lymphocytes (%) (Auto) 41.5 % (17.6-49.6) Monocytes (%) (Auto) 9.8 % (4.1-12.4) Eosinophils (%) (Auto) 1.6 % (0.4-6.7) Basophils (%) (Auto) 0.8 % (0.3-1.4) Nucleated RBC Relative Count (auto) 0.0 /100WBC Neutrophils # (Auto) 3.3 K/uL (2.0-7.4) Lymphocytes # (Auto) 2.9 K/uL (1.3-3.6) Monocytes # (Auto) 0.7 K/uL (0.3-1.0) Eosinophils # (Auto) 0.1 K/uL (0.0-0.5) Basophils # (Auto) 0.1 K/uL (0.0-0.1) Nucleated RBC Absolute Count (auto) 0.00 K/uL Sodium Level 139 mmol/L (137-145) Potassium Level 4.2 mmol/L (3.5-5.0) Chloride Level 104 mmol/L (98-107) Carbon Dioxide Level 23 mmol/L (22-30) Blood Urea Nitrogen 15 mg/dl (9-21) Creatinine 0.90 mg/dl (0.66-1.25) Glomerular Filtration Rate Calc > 60.0 Random Glucose 94 mg/dl (75-110) Calcium Level 8.9 mg/dl (8.4-10.2) Total Bilirubin 0.3 mg/dl (0.2-1.3) Aspartate Amino Transf (AST/SGOT) 19 U/L (0-35) Alanine Aminotransferase (ALT/SGPT) 36 U/L (0-56) Alkaline Phosphatase 77 U/L (0-126) Total Protein 6.5 gm/dl (6.3-8.2) Albumin 3.4 g/dl (3.5-5.0) Triglycerides Level 241 mg/dl (0-250) Cholesterol Level 233 mg/dl (75-200) LDL Cholesterol 135 mg/dl VLDL Cholesterol 48 mg/dl HDL Cholesterol 50 mg/dl Percent HDL Cholesterol 21.0 % Cholesterol Ratio (LDL/HDL) 2.70 Cholesterol/HDL Ratio 4.7 Chemistry Test 09/27/17 06:39 White Blood Count 7.0 k/uL (4.5-11.0) Red Blood Count 4.23 M/uL (4.00-5.60) Hemoglobin 13.9 g/dL (14.0-18.0) Hematocrit 39.3 % (42.0-52.0) Mean Corpuscular Volume 93.0 fL (80.0-96.0) Mean Corpuscular Hemoglobin 32.8 pg (26.0-33.0) Mean Corpuscular Hemoglobin Concent 35.3 g/dL (32.0-36.0) Red Cell Distribution Width 14.2 % (11.5-14.5) Platelet Count 153 K/uL (150-450) Mean Platelet Volume 8.7 fL (7.2-11.1) Neutrophils (%) (Auto) 46.3 % (39.4-72.5) Lymphocytes (%) (Auto) 41.5 % (17.6-49.6) Monocytes (%) (Auto) 9.8 % (4.1-12.4) Eosinophils (%) (Auto) 1.6 % (0.4-6.7) Basophils (%) (Auto) 0.8 % (0.3-1.4) Nucleated RBC Relative Count (auto) 0.0 /100WBC Neutrophils # (Auto) 3.3 K/uL (2.0-7.4) Lymphocytes # (Auto) 2.9 K/uL (1.3-3.6) Monocytes # (Auto) 0.7 K/uL (0.3-1.0) Eosinophils # (Auto) 0.1 K/uL (0.0-0.5) Basophils # (Auto) 0.1 K/uL (0.0-0.1) Nucleated RBC Absolute Count (auto) 0.00 K/uL Glomerular Filtration Rate Calc > 60.0 Calcium Level 8.9 mg/dl (8.4-10.2) Total Bilirubin 0.3 mg/dl (0.2-1.3) Aspartate Amino Transf (AST/SGOT) 19 U/L (0-35) Alanine Aminotransferase (ALT/SGPT) 36 U/L (0-56) Alkaline Phosphatase 77 U/L (0-126) Total Protein 6.5 gm/dl (6.3-8.2) Albumin 3.4 g/dl (3.5-5.0) Triglycerides Level 241 mg/dl (0-250) Cholesterol Level 233 mg/dl (75-200) LDL Cholesterol 135 mg/dl VLDL Cholesterol 48 mg/dl HDL Cholesterol 50 mg/dl Percent HDL Cholesterol 21.0 % Cholesterol Ratio (LDL/HDL) 2.70 Cholesterol/HDL Ratio 4.7 Muscle Strength and Tone: WNL Gait and Station: Steady [facility] Medications Reviewed: Side Effects, Benefits of Medication, Risks Allergies Reviewed: Yes Mental Status Exam General Appearance: Casual, Well Groomed, Good Eye Contact, Cooperative, Polite , Good Interaction, No Unkept, No Tearful, No Psychomotor Agitation, No Psychomotor Retardation, No Bizarre Mannerisms, No Tics Speech: Clear, Spontaneous, Normal Rate, Normal Rhythm, Normal Volume, Normal Tone Mood: Euthymic Affect: Full and Appropriate, Calm, No Tearful, No Anxious, No Agitated Thought Process: No Logical, No Goal Directed, Loose Associations, Flight of Ideas Thought Content: No Suicidal Ideation, No Homicidal Ideation, Delusions ( persecution), Auditory Halllucinations (probable), No Visual Hallucinations, No Thought Broadcasting, No Ideas of Reference, No Obsessions, No Compulsions, Other (paranoia verbalized by patient. ) Sensorium: Clear Cognition: Alert & Oriented-Person, Alert & Oriented-Place, Alert & Oriented- Time, Zhcrt-Zfozfhyh-Wzmgvioja Memory: Immediate, Recent, Remote Intelligence: Average Insight Judgment: Poor (limited by illness) [facility] Assessment and Plan [id number]-[id number] Encounter Date: Oct 08, 2017 Qhvn-im-[id number] Encounter Time: 11:00 [facility] Plan: Necessary Precautions, Individual/Group Therapy, Admin/Titrate Meds, Educate Patient Tobacco Medications: Started Multpiple Antipsychotics Used: No Problems: (1) Schizophrenia Status: Chronic (2) Polysubstance dependence Optional Permanent Comment: drug seeking behaviors on the unit, but minimal Last Edited By: Fiordaliza Alvarenga on Oct 08, 2017 12:08 Status: Resolved Condition 1. continue treatment. [facility] Problem Qualifiers (1) Schizophrenia: Schizophrenia type: paranoid schizophrenia Qualified Codes: F20.0 - Paranoid schizophrenia FIORDALIZA ALVARENGA MD Oct 08, 2017 12:09
[2017-10-09 05:54] VITALS: BP 115/77
[2017-10-09] MEDS: MULTIVITAMINS PO SCH (08:14)
[2017-10-09] MEDS: risperiDONE 1 MG TAB PO SCH ×2 (08:14→21:03)
[2017-10-09] MEDS: NAPROXEN 500 MG TAB PO PRN ×2 (08:24→19:17)
--- NOTE | 2017-10-09 10:39 | BHS Progress Note ---
[facility] - Subjective Progress Notes Subjective Patient doing well today, reports no symptoms with the exception of some poor sleep, Will prescribe trazodone, that patient has been on before. Continues to await [facility]. No other concerns. Suicidal Ideation: None Homicidal Ideation: None [facility] - Objective Physical Exam Vital Signs Hematology Test 09/27/17 06:39 Red Blood Count 4.23 M/uL (4.00-5.60) Mean Corpuscular Volume 93.0 fL (80.0-96.0) Mean Corpuscular Hemoglobin 32.8 pg (26.0-33.0) Mean Corpuscular Hemoglobin Concent 35.3 g/dL (32.0-36.0) Red Cell Distribution Width 14.2 % (11.5-14.5) Mean Platelet Volume 8.7 fL (7.2-11.1) Neutrophils (%) (Auto) 46.3 % (39.4-72.5) Lymphocytes (%) (Auto) 41.5 % (17.6-49.6) Monocytes (%) (Auto) 9.8 % (4.1-12.4) Eosinophils (%) (Auto) 1.6 % (0.4-6.7) Basophils (%) (Auto) 0.8 % (0.3-1.4) Nucleated RBC Relative Count (auto) 0.0 /100WBC Neutrophils # (Auto) 3.3 K/uL (2.0-7.4) Lymphocytes # (Auto) 2.9 K/uL (1.3-3.6) Monocytes # (Auto) 0.7 K/uL (0.3-1.0) Eosinophils # (Auto) 0.1 K/uL (0.0-0.5) Basophils # (Auto) 0.1 K/uL (0.0-0.1) Nucleated RBC Absolute Count (auto) 0.00 K/uL Sodium Level 139 mmol/L (137-145) Potassium Level 4.2 mmol/L (3.5-5.0) Chloride Level 104 mmol/L (98-107) Carbon Dioxide Level 23 mmol/L (22-30) Blood Urea Nitrogen 15 mg/dl (9-21) Creatinine 0.90 mg/dl (0.66-1.25) Glomerular Filtration Rate Calc > 60.0 Random Glucose 94 mg/dl (75-110) Calcium Level 8.9 mg/dl (8.4-10.2) Total Bilirubin 0.3 mg/dl (0.2-1.3) Aspartate Amino Transf (AST/SGOT) 19 U/L (0-35) Alanine Aminotransferase (ALT/SGPT) 36 U/L (0-56) Alkaline Phosphatase 77 U/L (0-126) Total Protein 6.5 gm/dl (6.3-8.2) Albumin 3.4 g/dl (3.5-5.0) Triglycerides Level 241 mg/dl (0-250) Cholesterol Level 233 mg/dl (75-200) LDL Cholesterol 135 mg/dl VLDL Cholesterol 48 mg/dl HDL Cholesterol 50 mg/dl Percent HDL Cholesterol 21.0 % Cholesterol Ratio (LDL/HDL) 2.70 Cholesterol/HDL Ratio 4.7 Chemistry Test 09/27/17 06:39 White Blood Count 7.0 k/uL (4.5-11.0) Red Blood Count 4.23 M/uL (4.00-5.60) Hemoglobin 13.9 g/dL (14.0-18.0) Hematocrit 39.3 % (42.0-52.0) Mean Corpuscular Volume 93.0 fL (80.0-96.0) Mean Corpuscular Hemoglobin 32.8 pg (26.0-33.0) Mean Corpuscular Hemoglobin Concent 35.3 g/dL (32.0-36.0) Red Cell Distribution Width 14.2 % (11.5-14.5) Platelet Count 153 K/uL (150-450) Mean Platelet Volume 8.7 fL (7.2-11.1) Neutrophils (%) (Auto) 46.3 % (39.4-72.5) Lymphocytes (%) (Auto) 41.5 % (17.6-49.6) Monocytes (%) (Auto) 9.8 % (4.1-12.4) Eosinophils (%) (Auto) 1.6 % (0.4-6.7) Basophils (%) (Auto) 0.8 % (0.3-1.4) Nucleated RBC Relative Count (auto) 0.0 /100WBC Neutrophils # (Auto) 3.3 K/uL (2.0-7.4) Lymphocytes # (Auto) 2.9 K/uL (1.3-3.6) Monocytes # (Auto) 0.7 K/uL (0.3-1.0) Eosinophils # (Auto) 0.1 K/uL (0.0-0.5) Basophils # (Auto) 0.1 K/uL (0.0-0.1) Nucleated RBC Absolute Count (auto) 0.00 K/uL Glomerular Filtration Rate Calc > 60.0 Calcium Level 8.9 mg/dl (8.4-10.2) Total Bilirubin 0.3 mg/dl (0.2-1.3) Aspartate Amino Transf (AST/SGOT) 19 U/L (0-35) Alanine Aminotransferase (ALT/SGPT) 36 U/L (0-56) Alkaline Phosphatase 77 U/L (0-126) Total Protein 6.5 gm/dl (6.3-8.2) Albumin 3.4 g/dl (3.5-5.0) Triglycerides Level 241 mg/dl (0-250) Cholesterol Level 233 mg/dl (75-200) LDL Cholesterol 135 mg/dl VLDL Cholesterol 48 mg/dl HDL Cholesterol 50 mg/dl Percent HDL Cholesterol 21.0 % Cholesterol Ratio (LDL/HDL) 2.70 Cholesterol/HDL Ratio 4.7 Vital Signs Date Time Temp Pulse Resp B/P (MAP) Pulse Ox O2 Delivery O2 Flow Rate FiO2 10/09/17 05:54 98.4 76 15 115/77 (90) 93 Room Air Muscle Strength and Tone: WNL Gait and Station: Steady S Medications Reviewed: Side Effects, Benefits of Medication, Risks Allergies Reviewed: Yes Mental Status Exam General Appearance: Casual, Well Groomed, Good Eye Contact, Cooperative, Polite , Good Interaction, No Unkept, No Tearful, No Psychomotor Agitation, No Psychomotor Retardation, No Bizarre Mannerisms, No Tics Speech: Clear, Spontaneous, Normal Rate, Normal Rhythm, Normal Volume, Normal Tone Mood: Euthymic Affect: Full and Appropriate, Calm, No Tearful, No Anxious, No Agitated Thought Process: No Logical, No Goal Directed, Loose Associations, Flight of Ideas Thought Content: No Suicidal Ideation, No Homicidal Ideation, Delusions ( persecution), No Auditory Halllucinations, No Visual Hallucinations, No Thought Broadcasting, No Ideas of Reference, No Obsessions, No Compulsions, Other ( paranoia verbalized by patient. ) Sensorium: Clear Cognition: Alert & Oriented-Person, Alert & Oriented-Place, Alert & Oriented- Time, Dfknd-Erujrjpa-Lanqwzqts Memory: Immediate, Recent, Remote Intelligence: Average Insight Judgment: Poor (limited by illness) [facility] Assessment and Plan [id number] Encounter Date: Oct 09, 2017 Ffme-[id number]-Udbr Encounter Time: 10:30 [facility] Plan: Necessary Precautions, Individual/Group Therapy, Admin/Titrate Meds, Educate Patient Tobacco Medications: Started Multpiple Antipsychotics Used: No Problems: (1) Schizophrenia Status: Chronic (2) Polysubstance dependence Optional Permanent Comment: drug seeking behaviors on the unit, but minimal Last Edited By: Fiordaliza Alvarenga on Oct 08, 2017 12:08 Status: Resolved Condition 1. continue treatment. [facility]. [facility] Problem Qualifiers (1) Schizophrenia: Schizophrenia type: paranoid schizophrenia Qualified Codes: F20.0 - Paranoid schizophrenia FIORDALIZA ALVARENGA MD Oct 09, 2017 10:39
[2017-10-09] MEDS: traZODone HCL 50 MG TAB PO SCH (21:03)
[2017-10-10 06:22] VITALS: BP 85/63
[2017-10-10] MEDS: risperiDONE 1 MG TAB PO SCH ×2 (08:22→21:29)
[2017-10-10] MEDS: MULTIVITAMINS PO SCH (08:22)
--- NOTE | 2017-10-10 12:15 | BHS Progress Note ---
BHS - Subjective Progress Notes Subjective Patient doing well on the unit, denies any psychiatric concerns. Mood "okay" No other complaints, will [facility] to [facility]. Suicidal Ideation: None Homicidal Ideation: None [facility] - Objective Physical Exam Vital Signs Vital Signs Date Time Temp Pulse Resp B/P (MAP) Pulse Ox O2 Delivery O2 Flow Rate FiO2 10/10/17 06:22 98.6 99 16 85/63 (70) 92 Room Air Hematology Test 09/27/17 06:39 Red Blood Count 4.23 M/uL (4.00-5.60) Mean Corpuscular Volume 93.0 fL (80.0-96.0) Mean Corpuscular Hemoglobin 32.8 pg (26.0-33.0) Mean Corpuscular Hemoglobin Concent 35.3 g/dL (32.0-36.0) Red Cell Distribution Width 14.2 % (11.5-14.5) Mean Platelet Volume 8.7 fL (7.2-11.1) Neutrophils (%) (Auto) 46.3 % (39.4-72.5) Lymphocytes (%) (Auto) 41.5 % (17.6-49.6) Monocytes (%) (Auto) 9.8 % (4.1-12.4) Eosinophils (%) (Auto) 1.6 % (0.4-6.7) Basophils (%) (Auto) 0.8 % (0.3-1.4) Nucleated RBC Relative Count (auto) 0.0 /100WBC Neutrophils # (Auto) 3.3 K/uL (2.0-7.4) Lymphocytes # (Auto) 2.9 K/uL (1.3-3.6) Monocytes # (Auto) 0.7 K/uL (0.3-1.0) Eosinophils # (Auto) 0.1 K/uL (0.0-0.5) Basophils # (Auto) 0.1 K/uL (0.0-0.1) Nucleated RBC Absolute Count (auto) 0.00 K/uL Sodium Level 139 mmol/L (137-145) Potassium Level 4.2 mmol/L (3.5-5.0) Chloride Level 104 mmol/L (98-107) Carbon Dioxide Level 23 mmol/L (22-30) Blood Urea Nitrogen 15 mg/dl (9-21) Creatinine 0.90 mg/dl (0.66-1.25) Glomerular Filtration Rate Calc > 60.0 Random Glucose 94 mg/dl (75-110) Calcium Level 8.9 mg/dl (8.4-10.2) Total Bilirubin 0.3 mg/dl (0.2-1.3) Aspartate Amino Transf (AST/SGOT) 19 U/L (0-35) Alanine Aminotransferase (ALT/SGPT) 36 U/L (0-56) Alkaline Phosphatase 77 U/L (0-126) Total Protein 6.5 gm/dl (6.3-8.2) Albumin 3.4 g/dl (3.5-5.0) Triglycerides Level 241 mg/dl (0-250) Cholesterol Level 233 mg/dl (75-200) LDL Cholesterol 135 mg/dl VLDL Cholesterol 48 mg/dl HDL Cholesterol 50 mg/dl Percent HDL Cholesterol 21.0 % Cholesterol Ratio (LDL/HDL) 2.70 Cholesterol/HDL Ratio 4.7 Chemistry Test 09/27/17 06:39 White Blood Count 7.0 k/uL (4.5-11.0) Red Blood Count 4.23 M/uL (4.00-5.60) Hemoglobin 13.9 g/dL (14.0-18.0) Hematocrit 39.3 % (42.0-52.0) Mean Corpuscular Volume 93.0 fL (80.0-96.0) Mean Corpuscular Hemoglobin 32.8 pg (26.0-33.0) Mean Corpuscular Hemoglobin Concent 35.3 g/dL (32.0-36.0) Red Cell Distribution Width 14.2 % (11.5-14.5) Platelet Count 153 K/uL (150-450) Mean Platelet Volume 8.7 fL (7.2-11.1) Neutrophils (%) (Auto) 46.3 % (39.4-72.5) Lymphocytes (%) (Auto) 41.5 % (17.6-49.6) Monocytes (%) (Auto) 9.8 % (4.1-12.4) Eosinophils (%) (Auto) 1.6 % (0.4-6.7) Basophils (%) (Auto) 0.8 % (0.3-1.4) Nucleated RBC Relative Count (auto) 0.0 /100WBC Neutrophils # (Auto) 3.3 K/uL (2.0-7.4) Lymphocytes # (Auto) 2.9 K/uL (1.3-3.6) Monocytes # (Auto) 0.7 K/uL (0.3-1.0) Eosinophils # (Auto) 0.1 K/uL (0.0-0.5) Basophils # (Auto) 0.1 K/uL (0.0-0.1) Nucleated RBC Absolute Count (auto) 0.00 K/uL Glomerular Filtration Rate Calc > 60.0 Calcium Level 8.9 mg/dl (8.4-10.2) Total Bilirubin 0.3 mg/dl (0.2-1.3) Aspartate Amino Transf (AST/SGOT) 19 U/L (0-35) Alanine Aminotransferase (ALT/SGPT) 36 U/L (0-56) Alkaline Phosphatase 77 U/L (0-126) Total Protein 6.5 gm/dl (6.3-8.2) Albumin 3.4 g/dl (3.5-5.0) Triglycerides Level 241 mg/dl (0-250) Cholesterol Level 233 mg/dl (75-200) LDL Cholesterol 135 mg/dl VLDL Cholesterol 48 mg/dl HDL Cholesterol 50 mg/dl Percent HDL Cholesterol 21.0 % Cholesterol Ratio (LDL/HDL) 2.70 Cholesterol/HDL Ratio 4.7 Muscle Strength and Tone: WNL Gait and Station: Steady [facility] Medications Reviewed: Side Effects, Benefits of Medication, Risks Allergies Reviewed: Yes Mental Status Exam General Appearance: Casual, Well Groomed, Good Eye Contact, Cooperative, Polite , Good Interaction, No Unkept, No Tearful, No Psychomotor Agitation, No Psychomotor Retardation, No Bizarre Mannerisms, No Tics Speech: Clear, Spontaneous, Normal Rate, Normal Rhythm, Normal Volume, Normal Tone Mood: Euthymic Affect: Full and Appropriate, Calm, No Tearful, No Anxious, No Agitated Thought Process: No Logical, No Goal Directed, Loose Associations, Flight of Ideas Thought Content: No Suicidal Ideation, No Homicidal Ideation, Delusions ( persecution), No Auditory Halllucinations, No Visual Hallucinations, No Thought Broadcasting, No Ideas of Reference, No Obsessions, No Compulsions, Other ( paranoia verbalized by patient. ) Sensorium: Clear Cognition: Alert & Oriented-Person, Alert & Oriented-Place, Alert & Oriented- Time, Rxehs-Bganrqni-Yzqkpcahl Memory: Immediate, Recent, Remote Intelligence: Average Insight Judgment: Poor (limited by illness) [facility] Assessment and Plan [id number]-[id number] Encounter Date: Oct 10, 2017 Saun-tz-Migh Encounter Time: 11:00 [facility] Plan: Necessary Precautions, Individual/Group Therapy, Admin/Titrate Meds, Educate Patient Tobacco Medications: Started Multpiple Antipsychotics Used: No Problems: (1) Schizophrenia Status: Chronic (2) Polysubstance dependence Optional Permanent Comment: drug seeking behaviors on the unit, but minimal Last Edited By: Fiordaliza Alvarenga on Oct 08, 2017 12:08 Status: Resolved Condition 1. continue treatment. 2. [facility] Problem Qualifiers (1) Schizophrenia: Schizophrenia type: paranoid schizophrenia Qualified Codes: F20.0 - Paranoid schizophrenia FIORDALIZA ALVARENGA MD Oct 10, 2017 12:15
[2017-10-10] MEDS: NAPROXEN 500 MG TAB PO PRN (13:28)
[2017-10-10] MEDS: traZODone HCL 50 MG TAB PO SCH (21:29)
[2017-10-11] MEDS: risperiDONE 1 MG TAB PO SCH ×3 (08:07→21:30)
[2017-10-11] MEDS: NAPROXEN 500 MG TAB PO PRN (08:07)
[2017-10-11] MEDS: MULTIVITAMINS PO SCH (08:07)
--- NOTE | 2017-10-11 11:05 | BHS Progress Note ---
BHS - Subjective Progress Notes Subjective Patient very polite and cooperative today, denies any symptoms of psychiatric concern. No medication changes. Will continue to await state hospital transfer. Suicidal Ideation: None Homicidal Ideation: None [facility]HS - Objective Physical Exam Vital Signs Vital Signs Date Time Temp Pulse Resp B/P (MAP) Pulse Ox O2 Delivery O2 Flow Rate FiO2 10/10/17 06:22 98.6 99 16 85/63 (70) 92 Room Air Hematology Test 09/27/17 06:39 Red Blood Count 4.23 M/uL (4.00-5.60) Mean Corpuscular Volume 93.0 fL (80.0-96.0) Mean Corpuscular Hemoglobin 32.8 pg (26.0-33.0) Mean Corpuscular Hemoglobin Concent 35.3 g/dL (32.0-36.0) Red Cell Distribution Width 14.2 % (11.5-14.5) Mean Platelet Volume 8.7 fL (7.2-11.1) Neutrophils (%) (Auto) 46.3 % (39.4-72.5) Lymphocytes (%) (Auto) 41.5 % (17.6-49.6) Monocytes (%) (Auto) 9.8 % (4.1-12.4) Eosinophils (%) (Auto) 1.6 % (0.4-6.7) Basophils (%) (Auto) 0.8 % (0.3-1.4) Nucleated RBC Relative Count (auto) 0.0 /100WBC Neutrophils # (Auto) 3.3 K/uL (2.0-7.4) Lymphocytes # (Auto) 2.9 K/uL (1.3-3.6) Monocytes # (Auto) 0.7 K/uL (0.3-1.0) Eosinophils # (Auto) 0.1 K/uL (0.0-0.5) Basophils # (Auto) 0.1 K/uL (0.0-0.1) Nucleated RBC Absolute Count (auto) 0.00 K/uL Sodium Level 139 mmol/L (137-145) Potassium Level 4.2 mmol/L (3.5-5.0) Chloride Level 104 mmol/L (98-107) Carbon Dioxide Level 23 mmol/L (22-30) Blood Urea Nitrogen 15 mg/dl (9-21) Creatinine 0.90 mg/dl (0.66-1.25) Glomerular Filtration Rate Calc > 60.0 Random Glucose 94 mg/dl (75-110) Calcium Level 8.9 mg/dl (8.4-10.2) Total Bilirubin 0.3 mg/dl (0.2-1.3) Aspartate Amino Transf (AST/SGOT) 19 U/L (0-35) Alanine Aminotransferase (ALT/SGPT) 36 U/L (0-56) Alkaline Phosphatase 77 U/L (0-126) Total Protein 6.5 gm/dl (6.3-8.2) Albumin 3.4 g/dl (3.5-5.0) Triglycerides Level 241 mg/dl (0-250) Cholesterol Level 233 mg/dl (75-200) LDL Cholesterol 135 mg/dl VLDL Cholesterol 48 mg/dl HDL Cholesterol 50 mg/dl Percent HDL Cholesterol 21.0 % Cholesterol Ratio (LDL/HDL) 2.70 Cholesterol/HDL Ratio 4.7 Chemistry Test 09/27/17 06:39 White Blood Count 7.0 k/uL (4.5-11.0) Red Blood Count 4.23 M/uL (4.00-5.60) Hemoglobin 13.9 g/dL (14.0-18.0) Hematocrit 39.3 % (42.0-52.0) Mean Corpuscular Volume 93.0 fL (80.0-96.0) Mean Corpuscular Hemoglobin 32.8 pg (26.0-33.0) Mean Corpuscular Hemoglobin Concent 35.3 g/dL (32.0-36.0) Red Cell Distribution Width 14.2 % (11.5-14.5) Platelet Count 153 K/uL (150-450) Mean Platelet Volume 8.7 fL (7.2-11.1) Neutrophils (%) (Auto) 46.3 % (39.4-72.5) Lymphocytes (%) (Auto) 41.5 % (17.6-49.6) Monocytes (%) (Auto) 9.8 % (4.1-12.4) Eosinophils (%) (Auto) 1.6 % (0.4-6.7) Basophils (%) (Auto) 0.8 % (0.3-1.4) Nucleated RBC Relative Count (auto) 0.0 /100WBC Neutrophils # (Auto) 3.3 K/uL (2.0-7.4) Lymphocytes # (Auto) 2.9 K/uL (1.3-3.6) Monocytes # (Auto) 0.7 K/uL (0.3-1.0) Eosinophils # (Auto) 0.1 K/uL (0.0-0.5) Basophils # (Auto) 0.1 K/uL (0.0-0.1) Nucleated RBC Absolute Count (auto) 0.00 K/uL Glomerular Filtration Rate Calc > 60.0 Calcium Level 8.9 mg/dl (8.4-10.2) Total Bilirubin 0.3 mg/dl (0.2-1.3) Aspartate Amino Transf (AST/SGOT) 19 U/L (0-35) Alanine Aminotransferase (ALT/SGPT) 36 U/L (0-56) Alkaline Phosphatase 77 U/L (0-126) Total Protein 6.5 gm/dl (6.3-8.2) Albumin 3.4 g/dl (3.5-5.0) Triglycerides Level 241 mg/dl (0-250) Cholesterol Level 233 mg/dl (75-200) LDL Cholesterol 135 mg/dl VLDL Cholesterol 48 mg/dl HDL Cholesterol 50 mg/dl Percent HDL Cholesterol 21.0 % Cholesterol Ratio (LDL/HDL) 2.70 Cholesterol/HDL Ratio 4.7 Muscle Strength and Tone: WNL Gait and Station: Steady [facility] Medications Reviewed: Side Effects, Benefits of Medication, Risks Allergies Reviewed: Yes Mental Status Exam General Appearance: Casual, Well Groomed, Good Eye Contact, Cooperative, Polite , Good Interaction, No Unkept, No Tearful, No Psychomotor Agitation, No Psychomotor Retardation, No Bizarre Mannerisms, No Tics Speech: Clear, Spontaneous, Normal Rate, Normal Rhythm, Normal Volume, Normal Tone Mood: Euthymic Affect: Full and Appropriate, Calm, No Tearful, No Anxious, No Agitated Thought Process: No Logical, No Goal Directed, Loose Associations, Flight of Ideas Thought Content: No Suicidal Ideation, No Homicidal Ideation, Delusions ( persecution), No Auditory Halllucinations, No Visual Hallucinations, No Thought Broadcasting, No Ideas of Reference, No Obsessions, No Compulsions, Other ( paranoia verbalized by patient. ) Sensorium: Clear Cognition: Alert & Oriented-Person, Alert & Oriented-Place, Alert & Oriented- Time, Zierc-Wjtonrts-Njofvslrt Memory: Immediate, Recent, Remote Intelligence: Average Insight Judgment: Poor (limited by illness) [facility] Assessment and Plan [id number] Encounter Date: Oct 11, 2017 [id number] Encounter Time: 10:00 [facility] Plan: Necessary Precautions, Individual/Group Therapy, Admin/Titrate Meds, Educate Patient Tobacco Medications: Started Multpiple Antipsychotics Used: No Problems: (1) Schizophrenia Status: Chronic (2) Polysubstance dependence Optional Permanent Comment: drug seeking behaviors on the unit, but minimal Last Edited By: Fiordaliza Alvarenga on Oct 08, 2017 12:08 Status: Resolved Condition 1. continue treatment. 2. [facility]. Problem Qualifiers (1) Schizophrenia: Schizophrenia type: paranoid schizophrenia Qualified Codes: F20.0 - Paranoid schizophrenia FIORDALIZA ALVARENGA MD Oct 11, 2017 11:05
[2017-10-11] MEDS: CARBAMIDE PEROX 6.5% OT SOLN EACH EAR SCH ×2 (13:46→21:31)
[2017-10-11 19:00] VITALS: BP 108/72
[2017-10-11] MEDS: traZODone HCL 50 MG TAB PO SCH (21:29)
[2017-10-12] MEDS: risperiDONE 1 MG TAB PO SCH ×2 (08:33→21:13)
[2017-10-12] MEDS: MULTIVITAMINS PO SCH (08:33)
[2017-10-12] MEDS: NAPROXEN 500 MG TAB PO PRN (08:35)
[2017-10-12] MEDS: CARBAMIDE PEROX 6.5% OT SOLN EACH EAR SCH ×2 (08:35→21:00)
--- NOTE | 2017-10-12 09:16 | BHS Progress Note ---
[facility] - Subjective Progress Notes Subjective ""Good." "I know they're out there to get me...the Mexicans." Suicidal Ideation: None Homicidal Ideation: None S - Objective Physical Exam Vital Signs Vital Signs 10/11/17 19:00 Temp 98.7 Pulse 85 Resp 16 B/P (MAP) 108/72 (84) Pulse Ox 90 O2 Delivery Room Air Muscle Strength and Tone: WNL Gait and Station: Steady [facility] Medications Reviewed: Side Effects, Benefits of Medication, Risks Allergies Reviewed: Yes Mental Status Exam General Appearance: Casual, Well Groomed, Good Eye Contact, Cooperative, Polite , Good Interaction, No Unkept, No Tearful, No Psychomotor Agitation, No Psychomotor Retardation, No Bizarre Mannerisms, No Tics Speech: Clear, Spontaneous, Normal Rate, Normal Rhythm, Normal Volume, Normal Tone Mood: Euthymic Affect: Full and Appropriate, Calm, No Tearful, No Anxious, No Agitated Thought Process: No Logical, No Goal Directed, Loose Associations, Flight of Ideas Thought Content: No Suicidal Ideation, No Homicidal Ideation, Delusions ( persecution), No Auditory Halllucinations, No Visual Hallucinations, No Thought Broadcasting, No Ideas of Reference, No Obsessions, No Compulsions, Other ( paranoia verbalized by patient. ) Sensorium: Clear Cognition: Alert & Oriented-Person, Alert & Oriented-Place, Alert & Oriented- Time, Mbgge-Swmeyohp-Mqvclojal Memory: Immediate, Recent, Remote Intelligence: Average Insight Judgment: Poor (limited by illness) [facility] Assessment and Plan [id number]-[id number] Encounter Date: Oct 12, 2017 Phsz-wx-Ifnl Encounter Time: 09:00 [facility] Plan: Necessary Precautions, Individual/Group Therapy, Admin/Titrate Meds, Educate Patient Tobacco Medications: Started Multpiple Antipsychotics Used: No Problems: (1) Schizophrenia Status: Chronic Problem Qualifiers (1) Schizophrenia: Schizophrenia type: paranoid schizophrenia Qualified Codes: F20.0 - Paranoid schizophrenia [address] NP Oct 12, 2017 09:16
[2017-10-12 13:17] VITALS: BP 118/70
[2017-10-12] MEDS: traZODone HCL 50 MG TAB PO SCH (21:12)
[2017-10-13] MEDS: MULTIVITAMINS PO SCH (08:30)
[2017-10-13] MEDS: CARBAMIDE PEROX 6.5% OT SOLN EACH EAR SCH ×2 (08:30→21:00)
[2017-10-13] MEDS: risperiDONE 1 MG TAB PO SCH ×2 (08:30→21:00)
--- NOTE | 2017-10-13 09:03 | BHS Progress Note ---
[facility] - Subjective Progress Notes Subjective "Fine." Depression, 0, Anxiety, 0, Anger 6. Denies Si, Denies Hi. Suicidal Ideation: None Homicidal Ideation: None S - Objective Physical Exam Vital Signs Vital Signs 10/12/17 13:17 Temp 98.6 Pulse 83 Resp 16 B/P (MAP) 118/70 (86) Pulse Ox 91 O2 Delivery Room Air Muscle Strength and Tone: WNL Gait and Station: Steady [facility] Medications Reviewed: Side Effects, Benefits of Medication, Risks Allergies Reviewed: Yes Mental Status Exam General Appearance: Casual, Well Groomed, Good Eye Contact, Cooperative, Polite , Good Interaction, No Unkept, No Tearful, No Psychomotor Agitation, No Psychomotor Retardation, No Bizarre Mannerisms, No Tics Speech: Clear, Spontaneous, Normal Rate, Normal Rhythm, Normal Volume, Normal Tone Mood: Euthymic Affect: Full and Appropriate, Calm, No Tearful, No Anxious, No Agitated Thought Process: No Logical, No Goal Directed, Loose Associations, Flight of Ideas Thought Content: No Suicidal Ideation, No Homicidal Ideation, Delusions ( persecution), No Auditory Halllucinations, No Visual Hallucinations, No Thought Broadcasting, No Ideas of Reference, No Obsessions, No Compulsions, Other ( paranoia verbalized by patient. ) Sensorium: Clear Cognition: Alert & Oriented-Person, Alert & Oriented-Place, Alert & Oriented- Time, Dknro-Xvyzahyt-Demnycmru Memory: Immediate, Recent, Remote Intelligence: Average Insight Judgment: Poor (limited by illness) [facility] Assessment and Plan [id number] Encounter Date: Oct 13, 2017 Vhet-mo-Wgwy Encounter Time: 09:00 [facility] Plan: Necessary Precautions, Individual/Group Therapy, Admin/Titrate Meds, Educate Patient Tobacco Medications: Started Multpiple Antipsychotics Used: No Problems: (1) Schizophrenia Status: Chronic Problem Qualifiers (1) Schizophrenia: Schizophrenia type: paranoid schizophrenia Qualified Codes: F20.0 - Paranoid schizophrenia [address] NP Oct 13, 2017 09:03
[2017-10-13 09:25] VITALS: BP 94/68
[2017-10-13] MEDS: traZODone HCL 50 MG TAB PO SCH (21:00)
[2017-10-14 05:50] VITALS: BP 110/79
[2017-10-14] MEDS: CARBAMIDE PEROX 6.5% OT SOLN EACH EAR SCH ×2 (08:36→21:32)
[2017-10-14] MEDS: MULTIVITAMINS PO SCH (08:36)
[2017-10-14] MEDS: risperiDONE 1 MG TAB PO SCH ×2 (08:36→21:29)
--- NOTE | 2017-10-14 10:28 | BHS Progress Note ---
[facility] - Subjective Progress Notes Subjective Patient doing well today, mildly apologetic about behaviors involving food recently. Will continue treatment, and arrange possible transfer to [facility] as early as Saturday this week. No other concerns. Suicidal Ideation: None Homicidal Ideation: None [facility] - Objective Physical Exam Vital Signs Vital Signs Date Time Temp Pulse Resp B/P (MAP) Pulse Ox O2 Delivery O2 Flow Rate FiO2 10/14/17 05:50 98.7 96 16 110/79 (89) 92 Room Air Vital Signs Date Time Temp Pulse Resp B/P (MAP) Pulse Ox O2 Delivery O2 Flow Rate FiO2 10/14/17 05:50 98.7 96 16 110/79 (89) 92 Room Air Muscle Strength and Tone: WNL Gait and Station: Steady [facility] Medications Reviewed: Side Effects, Benefits of Medication, Risks Allergies Reviewed: Yes Mental Status Exam General Appearance: Casual, Well Groomed, Good Eye Contact, Cooperative, Polite , Good Interaction, No Unkept, No Tearful, No Psychomotor Agitation, No Psychomotor Retardation, No Bizarre Mannerisms, No Tics Speech: Clear, Spontaneous, Normal Rate, Normal Rhythm, Normal Volume, Normal Tone Mood: Euthymic Affect: Full and Appropriate, Calm, No Tearful, No Anxious, No Agitated Thought Process: No Logical, No Goal Directed, Loose Associations, Flight of Ideas Thought Content: No Suicidal Ideation, No Homicidal Ideation, Delusions ( persecution), No Auditory Halllucinations, No Visual Hallucinations, No Thought Broadcasting, No Ideas of Reference, No Obsessions, No Compulsions, Other ( paranoia verbalized by patient. ) Sensorium: Clear Cognition: Alert & Oriented-Person, Alert & Oriented-Place, Alert & Oriented- Time, Riitd-Dqwbxggk-Vmvzkpzsy Memory: Immediate, Recent, Remote Intelligence: Average Insight Judgment: Poor (limited by illness) [facility] Assessment and Plan [id number] Encounter Date: Oct 14, 2017 Gvbb-ts-Eeil Encounter Time: 10:20 [facility] Plan: Necessary Precautions, Individual/Group Therapy, Admin/Titrate Meds, Educate Patient Tobacco Medications: Started Multpiple Antipsychotics Used: No Problems: (1) Schizophrenia Status: Chronic (2) Polysubstance dependence Optional Permanent Comment: drug seeking behaviors on the unit, but minimal Last Edited By: Fiordaliza Alvarenga on Oct 08, 2017 12:08 Status: Resolved Condition 1. continue treatment. [facility]. [facility] Problem Qualifiers (1) Schizophrenia: Schizophrenia type: paranoid schizophrenia Qualified Codes: F20.0 - Paranoid schizophrenia FIORDALIZA ALVARENGA MD Oct 14, 2017 10:28
[2017-10-14] MEDS ORDERED: NS 0.9% NEB 3 ML SOLN INH PRN (17:00)
[2017-10-14] MEDS: traZODone HCL 50 MG TAB PO SCH (21:29)
[2017-10-15 05:56] VITALS: BP 103/71
[2017-10-15] MEDS: NAPROXEN 500 MG TAB PO PRN (08:32)
[2017-10-15] MEDS: risperiDONE 1 MG TAB PO SCH ×2 (08:32→21:23)
[2017-10-15] MEDS: MULTIVITAMINS PO SCH (08:32)
[2017-10-15] MEDS: CARBAMIDE PEROX 6.5% OT SOLN EACH EAR SCH ×3 (08:34→21:23)
--- NOTE | 2017-10-15 08:57 | BHS Progress Note ---
BHS - Subjective Progress Notes Subjective Patient continues to be overall cooperative on the unit. Continues to critique food, and display underlying half-way sociopathy. Minimal drug seeking behaviors. Will plan on transfer to [facility] tomorrow. No other complaints or concerns today. Suicidal Ideation: None Homicidal Ideation: None S - Objective Physical Exam Vital Signs Vital Signs Date Time Temp Pulse Resp B/P (MAP) Pulse Ox O2 Delivery O2 Flow Rate FiO2 10/15/17 05:56 98.6 76 15 103/71 (82) 90 Room Air Hematology Test 09/27/17 06:39 10/11/17 16:10 Red Blood Count 4.23 M/uL (4.00-5.60) Mean Corpuscular Volume 93.0 fL (80.0-96.0) Mean Corpuscular Hemoglobin 32.8 pg (26.0-33.0) Mean Corpuscular Hemoglobin Concent 35.3 g/dL (32.0-36.0) Red Cell Distribution Width 14.2 % (11.5-14.5) Mean Platelet Volume 8.7 fL (7.2-11.1) Neutrophils (%) (Auto) 46.3 % (39.4-72.5) Lymphocytes (%) (Auto) 41.5 % (17.6-49.6) Monocytes (%) (Auto) 9.8 % (4.1-12.4) Eosinophils (%) (Auto) 1.6 % (0.4-6.7) Basophils (%) (Auto) 0.8 % (0.3-1.4) Nucleated RBC Relative Count (auto) 0.0 /100WBC Neutrophils # (Auto) 3.3 K/uL (2.0-7.4) Lymphocytes # (Auto) 2.9 K/uL (1.3-3.6) Monocytes # (Auto) 0.7 K/uL (0.3-1.0) Eosinophils # (Auto) 0.1 K/uL (0.0-0.5) Basophils # (Auto) 0.1 K/uL (0.0-0.1) Nucleated RBC Absolute Count (auto) 0.00 K/uL Sodium Level 139 mmol/L (137-145) Potassium Level 4.2 mmol/L (3.5-5.0) Chloride Level 104 mmol/L (98-107) Carbon Dioxide Level 23 mmol/L (22-30) Blood Urea Nitrogen 15 mg/dl (9-21) Creatinine 0.90 mg/dl (0.66-1.25) Glomerular Filtration Rate Calc > 60.0 Random Glucose 94 mg/dl (75-110) Calcium Level 8.9 mg/dl (8.4-10.2) Total Bilirubin 0.3 mg/dl (0.2-1.3) Aspartate Amino Transf (AST/SGOT) 19 U/L (0-35) Alanine Aminotransferase (ALT/SGPT) 36 U/L (0-56) Alkaline Phosphatase 77 U/L (0-126) Total Protein 6.5 gm/dl (6.3-8.2) Albumin 3.4 g/dl (3.5-5.0) Triglycerides Level 241 mg/dl (0-250) Cholesterol Level 233 mg/dl (75-200) LDL Cholesterol 135 mg/dl VLDL Cholesterol 48 mg/dl HDL Cholesterol 50 mg/dl Percent HDL Cholesterol 21.0 % Cholesterol Ratio (LDL/HDL) 2.70 Cholesterol/HDL Ratio 4.7 Tuberculin Skin Test 0 mm Chemistry Test 09/27/17 06:39 10/11/17 16:10 White Blood Count 7.0 k/uL (4.5-11.0) Red Blood Count 4.23 M/uL (4.00-5.60) Hemoglobin 13.9 g/dL (14.0-18.0) Hematocrit 39.3 % (42.0-52.0) Mean Corpuscular Volume 93.0 fL (80.0-96.0) Mean Corpuscular Hemoglobin 32.8 pg (26.0-33.0) Mean Corpuscular Hemoglobin Concent 35.3 g/dL (32.0-36.0) Red Cell Distribution Width 14.2 % (11.5-14.5) Platelet Count 153 K/uL (150-450) Mean Platelet Volume 8.7 fL (7.2-11.1) Neutrophils (%) (Auto) 46.3 % (39.4-72.5) Lymphocytes (%) (Auto) 41.5 % (17.6-49.6) Monocytes (%) (Auto) 9.8 % (4.1-12.4) Eosinophils (%) (Auto) 1.6 % (0.4-6.7) Basophils (%) (Auto) 0.8 % (0.3-1.4) Nucleated RBC Relative Count (auto) 0.0 /100WBC Neutrophils # (Auto) 3.3 K/uL (2.0-7.4) Lymphocytes # (Auto) 2.9 K/uL (1.3-3.6) Monocytes # (Auto) 0.7 K/uL (0.3-1.0) Eosinophils # (Auto) 0.1 K/uL (0.0-0.5) Basophils # (Auto) 0.1 K/uL (0.0-0.1) Nucleated RBC Absolute Count (auto) 0.00 K/uL Glomerular Filtration Rate Calc > 60.0 Calcium Level 8.9 mg/dl (8.4-10.2) Total Bilirubin 0.3 mg/dl (0.2-1.3) Aspartate Amino Transf (AST/SGOT) 19 U/L (0-35) Alanine Aminotransferase (ALT/SGPT) 36 U/L (0-56) Alkaline Phosphatase 77 U/L (0-126) Total Protein 6.5 gm/dl (6.3-8.2) Albumin 3.4 g/dl (3.5-5.0) Triglycerides Level 241 mg/dl (0-250) Cholesterol Level 233 mg/dl (75-200) LDL Cholesterol 135 mg/dl VLDL Cholesterol 48 mg/dl HDL Cholesterol 50 mg/dl Percent HDL Cholesterol 21.0 % Cholesterol Ratio (LDL/HDL) 2.70 Cholesterol/HDL Ratio 4.7 Tuberculin Skin Test 0 mm Muscle Strength and Tone: WNL Gait and Station: Steady S Medications Reviewed: Side Effects, Benefits of Medication, Risks Allergies Reviewed: Yes Mental Status Exam General Appearance: Casual, Well Groomed, Good Eye Contact, Cooperative, Polite , Good Interaction, No Unkept, No Tearful, No Psychomotor Agitation, No Psychomotor Retardation, No Bizarre Mannerisms, No Tics Speech: Clear, Spontaneous, Normal Rate, Normal Rhythm, Normal Volume, Normal Tone Mood: Euthymic Affect: Full and Appropriate, Calm, No Tearful, No Anxious, No Agitated Thought Process: No Logical, No Goal Directed, Loose Associations, Flight of Ideas Thought Content: No Suicidal Ideation, No Homicidal Ideation, Delusions ( persecution), No Auditory Halllucinations, No Visual Hallucinations, No Thought Broadcasting, No Ideas of Reference, No Obsessions, No Compulsions, Other ( paranoia verbalized by patient. ) Sensorium: Clear Cognition: Alert & Oriented-Person, Alert & Oriented-Place, Alert & Oriented- Time, Tcaaz-Hhcuqlzs-Mrogxlatg Memory: Immediate, Recent, Remote Intelligence: Average Insight Judgment: Poor (limited by illness) [facility] Assessment and Plan Zfer-[id number] Encounter Date: Oct 15, 2017 Qzxy-wv-Mxix Encounter Time: 08:30 [facility] Plan: Necessary Precautions, Individual/Group Therapy, Admin/Titrate Meds, Educate Patient Tobacco Medications: Started Multpiple Antipsychotics Used: No Problems: (1) Schizophrenia Status: Chronic (2) Polysubstance dependence Optional Permanent Comment: drug seeking behaviors on the unit, but minimal Last Edited By: Fiordaliza Alvarenga on Oct 08, 2017 12:08 Status: Resolved Condition 1. transfer to [facility] tomorrow. Problem Qualifiers (1) Schizophrenia: Schizophrenia type: paranoid schizophrenia Qualified Codes: F20.0 - Paranoid schizophrenia FIORDALIZA ALVARENGA MD Oct 15, 2017 08:57
[2017-10-15] MEDS ORDERED: CARB-340 OT (09:53)
[2017-10-15] MEDS ORDERED: TRAZ-156 PO (09:54)
[2017-10-15] MEDS ORDERED: RISP-29 PO ×2 (09:56)
[2017-10-15] MEDS ORDERED: MULT-1379 PO (09:57)
[2017-10-15] MEDS ORDERED: ACET-1966 PO (09:58)
[2017-10-15] MEDS ORDERED: NAPR-744 PO (09:58)
[2017-10-15] MEDS: traZODone HCL 50 MG TAB PO SCH (21:23)
[2017-10-16 05:11] VITALS: BP 95/56
[2017-10-16] MEDS: NAPROXEN 500 MG TAB PO PRN (06:21)
[2017-10-16] MEDS: CARBAMIDE PEROX 6.5% OT SOLN EACH EAR SCH (06:21)
[2017-10-16] MEDS: risperiDONE 1 MG TAB PO SCH (06:21)
[2017-10-16] MEDS: MULTIVITAMINS PO SCH (06:21)
--- NOTE | 2017-10-17 17:45 | DISCHARGE SUMMARY ---
Patient was seen on the morning of October 15, 2017 and the previous day, October for note concerning this transfer summary. FINAL DIAGNOSES PER DSM V History of schizophrenia. History of polysubstance use in remission. Antisocial traits. Social limitations related to illness. REASON FOR ADMISSION This is a 57-year-old patient who was initially detained and subsequently committed to the [facility] in [facility] [place], [place] at [place]. Please see [place] notes for full details. Patient has apparently exited a bus as he was traveling south out of [place], [place] where he had been living. Patient becoming paranoid, indicating he was being persecuted by blacks and Mexicans. Patient then exited bus in [place]. Patient was eventually transferred to [facility] for continued hold until placement at [facility] could be made. Upon arrival patient was calm and cooperative, not exhibiting any grossly psychotic behavior. Patient did continue to mention delusional content concerning persecution throughout his stay. Patient not demonstrating any significant paranoia while on the unit. Patient did maintain on medication Risperdal, which had been helpful in the past. Patient has a long history of multiple hospitalizations, is on a disability for mental health. Patient exhibiting some sociopathic tendencies and traits on the unit as well regarding female residents and patient acting entitled at times, demanding such things as food be delivered perfectly to him, and referring to his disability check as a paycheck. Patient also exhibiting some mild pain medication-seeking behaviors, but admitting that he wanted to get high on opiates as the actual reason why he was indicating pain to this provider. PHYSICAL EXAMINATION GENERAL: Please see [place] notes prior to admission, as well as floor notes here at [facility]. Patient in no acute distress, complaints of pain with no associated clinical findings. A 57-year-old male, well groomed. VITAL SIGNS: At the time of admission, temperature 98.2, pulse 110, respiratory rate 16, blood pressure 90/70, pulse oximetry 93 on room air. At the time of discharge, temperature 97.8, pulse 99, respiratory rate 16, blood pressure 95/56, pulse oximetry 94 on room air. LABORATORY DATA On September 27, 2017, CBC significant for a hemoglobin slightly low at 13.9, hematocrit slightly low at 39.3. Chemistry panel: Cholesterol 233 and elevated with a cholesterol to HDL ratio of 4.7. PPD was 0. Please see lab work from [facility] for further laboratory data. MENTAL STATUS EXAMINATION AT THE TIME OF [facility]SFER [place] [facility] [place]ARANCE, BEHAVIOR AND ATTITUDE: A fairly well-groomed 57-year-old male making fair eye contact. No psychomotor agitation or retardation. No bizarre mannerisms or tics. Cooperative overall. No periods of tearfulness. SPEECH: Within normal limits, regular rate, rhythm volume and tone. MOOD: Described as okay. AFFECT: Full at times and mood congruent overall. THOUGHT PROCESSES: Appear goal directed. Patient indicating the desire to transfer on to another hospital. No loose associations or flight of ideas. THOUGHT CONTENT: Patient denying any auditory or visual hallucinations, ideas of reference, thought broadcastings. Patient was reporting underlying delusional content of persecution. Denying any obsessions, compulsions. Patient adamantly denying suicidal or homicidal ideation. SENSORIUM: Clear. COGNITION: Alert and oriented to person, place, time, mostly to situation. MEMORY: Immediate, recent and remote estimated intact. INTELLIGENCE: Average based on interview. INSIGHT AND JUDGMENT: Limited by illness and maladaptive stress coping mechanisms and personality traits. RESULTS OF TESTING IMAGING: None. LABORATORY DATA: See above. CONSULTATIONS: None. TREATMENT Patient received medications, participated in individual and group therapy. HOSPITAL COURSE Any acute psychosis quickly resolved with the administration of Risperdal which was titrated to 3 mg at bedtime, 1 mg q.a.m. Addition of low dose trazodone also helped patient improve. Patient did seem to take an active role in his treatment. No gross paranoia was seen on the unit, however, patient mentioning this, patient interacting overall well with staff and other residents, occasionally having fits of anger seemingly related to patient's feeling of entitlement in how he should be cared for. CONDITION OF PATIENT ON DISCHARGE Stable. Considered minimal risk to himself or others and appropriate for transfer to [facility]. DISPOSITION Patient transferred to [facility] in the care of their staff, committed through [facility] [place], [place]. Patient would follow up with [facility] for further discharge plans and continued treatment. Crisis line was given should symptoms return. MEDICATIONS AT THE TIME OF DISCHARGE 1. Debrox [id number] eardrops for excessive cerumen. 2. Trazodone 50 mg at bedtime. 3. Risperdal 3 mg at bedtime. 4. Risperdal 1 mg every morning. 5. Multivitamin with minerals daily. 6. Naprosyn 250 mg p.o. every eight hours p.r.n. for pain. 7. Tylenol 650 mg every eight hours p.r.n. pain. Risks, benefits and alternatives of the above transfer plan were discussed. Informed consent was given to proceed with above transfer plan to the [facility] by this cooperative patient and learning support teacher from [facility]. MAURA
== END 2017-10-16 06:39 | DRG 885 ==
LOC: BHS 14:13
PROVIDERS: ADMIT Psychiatry & Neurology Psychiatry; ATTEND Psychiatry & Neurology Psychiatry
DX: F20.0 Paranoid schizophrenia (principal); F19.21 Other psychoactive substance dependence, in remission; Z76.5 Malingerer [conscious simulation]; Z72.811 Adult antisocial behavior
CPT/HCPCS: 36415; 82040; 82247; 82310; 82374; 82435; 82465; 82565; 82947; 83718; 84075; 84132; 84155; 84295; 84450; 84460; 84478; 84520; 85025; 86580; 90853; 93005; A4218